=== PATIENT | female | born 1975 | race Caucasian/White ===

== ENCOUNTER 2016-11-17 18:27 | Emergency (ER) | payer MEDICAID ==
[~2016-11-17] VITALS: Ht 170.2 cm; Wt 67.7 kg
[~2016-11-17 18:27] MED LIST: ALPR0.25 PO; BUPR75TA5 PO; DIAZ5TAB4 PO; DOCU-30 PO; HYDR-3240 PO; HYDR473S51 PO; LAMO25TA5 PO; LITH300C PO; OMEP-110 PO; ONDA4TAB10 PO; ONDA4TAB7 PO; OXYC-223 PO; OXYC-302 PO; OXYC10TA32 PO; POLY17PO5 PO; PROM25SU34 RC; QUET25TA5 PO; SENN1TAB7 PO; TRAM50TA2 PO
[2016-11-17 19:04] LABS: ASPARTATE AMINO TRANSFERASE 21 U/L (15-37); BLOOD UREA NITROGEN 9 mg/dL (7-18)
[2016-11-17] MEDS ORDERED: SODIUM CHLORIDE 0.9% 1,000 ML IV ONE (19:38)
[2016-11-17] MEDS ORDERED: DIPHENHYDRAMINE 50 MG/ML, 1ML ONE (19:45)
[2016-11-17] MEDS ORDERED: METOCLOPRAMIDE 5 MG/ML, 2ML ONE (19:48)
[2016-11-17] MEDS ORDERED: PROMETHAZINE 25 MG/ML, 1ML IM ONE (20:00)
[2016-11-17] MEDS ORDERED: SODIUM CHLORIDE FLUSH 10ML SYR IVF ONE (20:00)
[2016-11-17] MEDS ORDERED: SUMATRIPTAN 6MG/0.5ML SQ ONE ×2 (20:00)
[2016-11-17] MEDS ORDERED: DIPHENHYDRAMINE 50 MG/ML, 1ML IVPush ONE (20:00)
[2016-11-17] MEDS ORDERED: ONDANSETRON 2MG/ML, 2ML ONE (20:54)
[2016-11-17] MEDS ORDERED: OMNIPAQUE 350 MG/ML, 100ML BOTTLE ONE (20:56)
[2016-11-17] MEDS ORDERED: METOCLOPRAMIDE 5 MG/ML, 2ML IVPush ONE (21:00)
[2016-11-17] MEDS ORDERED: ONDANSETRON 2MG/ML, 2ML IVPush ONE (21:00)
[2016-11-17] MEDS ORDERED: KETOROLAC 30 MG/1 ML ONE (21:50)
[2016-11-17] MEDS ORDERED: KETOROLAC 30 MG/1 ML IVPush ONE (22:00)
[2016-11-17 22:42] VITALS: BP 111/48
== END 2016-11-17 22:44 | disposition home or self-care (01) ==
LOC: ED 22:37
DX: N83.201 Unspecified ovarian cyst, right side (principal); G43.809 Other migraine, not intractable, without status migrainosus
CPT/HCPCS: 36415; 74177; 80053; 81001; 83690; 85025; 96361; 96372; 96374; 96375; 99285; J1200; J1885; J2405; J2765; J3030; J7030; Q9967

== ENCOUNTER 2017-04-27 23:30 | Inpatient (IN) | payer MEDICAID ==
[~2017-04-27] VITALS: Ht 170.2 cm; Wt 69.0 kg
[~2017-04-27 23:30] MED LIST changes: +DOCU-131 PO; -DOCU-30 PO; -OXYC-223 PO; +OXYC-306 PO; -OXYC10TA32 PO; +OXYC10TA47 PO
[2017-04-28] MEDS ORDERED: PANTOPRAZOLE 40 MG IV ONE (00:14)
[2017-04-28] MEDS ORDERED: DIPHENHYDRAMINE 50 MG/ML, 1ML ONE (00:15)
[2017-04-28] MEDS ORDERED: METOCLOPRAMIDE 5 MG/ML, 2ML ONE (00:15)
[2017-04-28 00:22] LABS: HEMATOCRIT 46.9 % (34.6-47.8); HEMOGLOBIN 15.4 g/dL (11.7-16.4)
[2017-04-28] MEDS ORDERED: METOCLOPRAMIDE 5 MG/ML, 2ML IVPush ONE (00:30)
[2017-04-28] MEDS ORDERED: PANTOPRAZOLE 40 MG IV IVP ONE (00:30)
[2017-04-28] MEDS ORDERED: SODIUM CHLORIDE 0.9% 1,000ML IVBOLUS ONE (00:30)
[2017-04-28] MEDS ORDERED: DIPHENHYDRAMINE 50 MG/ML, 1ML IVPush ONE (00:30)
[2017-04-28 00:32] LABS: ASPARTATE AMINO TRANSFERASE 31 U/L (15-37); BLOOD UREA NITROGEN 10 mg/dL (7-18)
[2017-04-28] MEDS ORDERED: LITH600C PO (00:35)
[2017-04-28] MEDS ORDERED: TOPI100T24 PO (00:35)
[2017-04-28] MEDS ORDERED: LAMO100T5 PO (00:35)
[2017-04-28] MEDS ORDERED: ALPR1TAB2 PO (00:35)
[2017-04-28] MEDS ORDERED: QUET100T4 PO (00:35)
[2017-04-28] MEDS ORDERED: ONDANSETRON 2MG/ML, 2ML ONE ×2 (01:11→01:45)
[2017-04-28] MEDS ORDERED: ONDANSETRON 2MG/ML, 2ML IVPush ONE (01:30)
[2017-04-28] MEDS ORDERED: hydrALAzine 20 MG/ML, 1ML IVPush PRN (01:30)
[2017-04-28] MEDS ORDERED: MORPHINE SULFATE 4 MG/ML, 1ML ONE (01:45)
[2017-04-28] MEDS: morphine SULFATE 10 MG/ML, 1ML IVPush PRN ×5 (01:49→17:51)
[2017-04-28] MEDS: ONDANSETRON 2MG/ML, 2ML IVPush PRN ×3 (01:49→17:51)
[2017-04-28 02:31] VITALS: BP 117/79
[2017-04-28] MEDS: LACTATED RINGERS 1,000 ML IV SCH ×3 (03:38→18:42)
[2017-04-28] MEDS: PROMETHAZINE 25 MG/ML, 1ML IM PRN (04:06)
[2017-04-28 05:46] LABS: HEMATOCRIT 41.7 % (34.6-47.8); HEMOGLOBIN 14.1 g/dL (11.7-16.4); WHITE BLOOD COUNT 11.6 x10^3/uL (3.4-10)
[2017-04-28] MEDS: HEPARIN 5,000 UNITS/ML, 1ML SQ SCH ×3 (05:55→20:33)
[2017-04-28 06:25] LABS: ASPARTATE AMINO TRANSFERASE 26 U/L (15-37); BLOOD UREA NITROGEN 9 mg/dL (7-18)
[2017-04-28 06:59] VITALS: BP 120/74
[2017-04-28] MEDS ORDERED: LITHIUM CARBONATE 300 MG TABLET.ER PO SCH (09:00)
[2017-04-28] MEDS ORDERED: QUETIAPINE 100MG TABLET PO SCH (09:00)
[2017-04-28] MEDS ORDERED: LAMOTRIGINE 100 MG TABLET PO SCH (09:00)
[2017-04-28] MEDS ORDERED: TOPIRAMATE 100 MG TABLET PO SCH (09:00)
[2017-04-28] MEDS: LORazepam 2 MG/ML, 1ML IVPush PRN ×3 (11:35→20:33)
[2017-04-28 14:07] VITALS: BP 118/76
[2017-04-28 18:37] VITALS: BP 112/72
[2017-04-28] MEDS: LAMOTRIGINE 100 MG TABLET PO SCH (20:32)
[2017-04-28] MEDS: TOPIRAMATE 100 MG TABLET PO SCH (20:32)
[2017-04-28] MEDS: QUETIAPINE 100MG TABLET PO SCH (20:32)
[2017-04-28] MEDS: LITHIUM CARBONATE 300 MG TABLET.ER PO SCH (20:33)
[2017-04-29 00:57] VITALS: BP 109/68
[2017-04-29] MEDS: LORazepam 2 MG/ML, 1ML IVPush PRN ×5 (01:06→22:53)
[2017-04-29] MEDS: LACTATED RINGERS 1,000 ML IV SCH ×4 (01:06→17:51)
[2017-04-29] MEDS: HEPARIN 5,000 UNITS/ML, 1ML SQ SCH ×3 (04:42→20:58)
[2017-04-29 05:38] LABS: HEMATOCRIT 36.5 % (34.6-47.8); HEMOGLOBIN 12.1 g/dL (11.7-16.4); WHITE BLOOD COUNT 8.6 x10^3/uL (3.4-10)
[2017-04-29 06:04] LABS: ASPARTATE AMINO TRANSFERASE 18 U/L (15-37); BLOOD UREA NITROGEN 6 mg/dL (7-18)
[2017-04-29 06:49] VITALS: BP 104/65
[2017-04-29] MEDS: PANTOPRAZOLE 40 MG IV IVP SCH (08:06)
[2017-04-29] MEDS ORDERED: FOLIC ACID IV SCH (09:00)
[2017-04-29] MEDS ORDERED: THIAMINE IV SCH (09:00)
[2017-04-29] MEDS ORDERED: MAG SULFATE IV SCH (09:00)
[2017-04-29] MEDS ORDERED: POTASSIUM CHLORIDE IV SCH (09:00)
[2017-04-29] MEDS ORDERED: [UNRECOGNIZED DRUG - OTHER] IV SCH (09:00)
[2017-04-29 13:01] VITALS: BP 107/71
[2017-04-29] MEDS ORDERED: AMINO ACIDS 10% IV SCH (17:00)
[2017-04-29] MEDS ORDERED: TPN PER PHARMACY MC SCH (17:00)
[2017-04-29] MEDS ORDERED: [UNRECOGNIZED DRUG - OTHER] IV SCH (17:00)
[2017-04-29] MEDS ORDERED: FAT EMULSIONS IV SCH (17:00)
[2017-04-29] MEDS ORDERED: DEXTROSE 70% IV SCH (17:00)
[2017-04-29 19:43] VITALS: BP 109/72
[2017-04-29] MEDS: morphine SULFATE 10 MG/ML, 1ML IVPush PRN (20:58)
[2017-04-29] MEDS: TOPIRAMATE 100 MG TABLET PO SCH (20:59)
[2017-04-29] MEDS: LITHIUM CARBONATE 300 MG TABLET.ER PO SCH (20:59)
[2017-04-29] MEDS: QUETIAPINE 100MG TABLET PO SCH (20:59)
[2017-04-29] MEDS: LAMOTRIGINE 100 MG TABLET PO SCH (20:59)
[2017-04-30] MEDS: morphine SULFATE 10 MG/ML, 1ML IVPush PRN ×2 (01:33→09:03)
[2017-04-30 02:26] VITALS: BP 95/60
[2017-04-30] MEDS: LACTATED RINGERS 1,000 ML IV SCH ×3 (02:38→16:44)
[2017-04-30] MEDS: INSULIN ASPART 100 UNITS/ML, PEN SQ-INSULIN SCH ×3 (05:11→21:42)
[2017-04-30] MEDS: HEPARIN 5,000 UNITS/ML, 1ML SQ SCH ×3 (05:12→20:48)
[2017-04-30 05:46] LABS: ASPARTATE AMINO TRANSFERASE 15 U/L (15-37); BLOOD UREA NITROGEN 6 mg/dL (7-18)
[2017-04-30 06:46] VITALS: BP 104/68
[2017-04-30] MEDS: PANTOPRAZOLE 40 MG IV IVP SCH (08:57)
[2017-04-30] MEDS: LORazepam 2 MG/ML, 1ML IVPush PRN ×2 (11:21→17:21)
[2017-04-30 12:47] VITALS: BP 97/63
[2017-04-30] MEDS ORDERED: FAT EMULSIONS IV SCH (17:00)
[2017-04-30] MEDS ORDERED: AMINO ACIDS 10% IV SCH (17:00)
[2017-04-30] MEDS ORDERED: DEXTROSE 10% 500 ML IV PRN (17:00)
[2017-04-30] MEDS ORDERED: DEXTROSE 50%, 50ML SYRINGE IVPush PRN (17:00)
[2017-04-30] MEDS ORDERED: [UNRECOGNIZED DRUG - OTHER] IV SCH (17:00)
[2017-04-30] MEDS ORDERED: DEXTROSE 70% IV SCH (17:00)
[2017-04-30 19:13] VITALS: BP 103/64
[2017-04-30] MEDS: QUETIAPINE 100MG TABLET PO SCH (20:48)
[2017-04-30] MEDS: TOPIRAMATE 100 MG TABLET PO SCH (20:48)
[2017-04-30] MEDS: LAMOTRIGINE 100 MG TABLET PO SCH (20:48)
[2017-04-30] MEDS: LITHIUM CARBONATE 300 MG TABLET.ER PO SCH (20:49)
[2017-04-30] MEDS: PROMETHAZINE 25 MG/ML, 1ML IM PRN (21:42)
[2017-05-01] MEDS: morphine SULFATE 10 MG/ML, 1ML IVPush PRN ×4 (01:29→21:19)
[2017-05-01 02:53] VITALS: BP 104/70
[2017-05-01] MEDS: INSULIN ASPART 100 UNITS/ML, PEN SQ-INSULIN SCH ×3 (05:02→21:23)
[2017-05-01] MEDS: HEPARIN 5,000 UNITS/ML, 1ML SQ SCH ×3 (05:03→21:05)
[2017-05-01 05:34] LABS: BLOOD UREA NITROGEN 9 mg/dL (7-18)
[2017-05-01 08:15] VITALS: BP 106/58
[2017-05-01] MEDS: CHOLECALCIFEROL 1,000 UNIT TABLET PO SCH (08:54)
[2017-05-01] MEDS: LORazepam 2 MG/ML, 1ML IVPush PRN (08:54)
[2017-05-01] MEDS: LACTATED RINGERS 1,000 ML IV SCH ×2 (08:54→22:52)
[2017-05-01] MEDS: PANTOPRAZOLE 40 MG IV IVP SCH (08:54)
[2017-05-01 15:05] VITALS: BP 103/51
[2017-05-01] MEDS ORDERED: FAT EMULSIONS IV SCH (17:00)
[2017-05-01] MEDS ORDERED: DEXTROSE 70% IV SCH (17:00)
[2017-05-01] MEDS ORDERED: [UNRECOGNIZED DRUG - OTHER] IV SCH (17:00)
[2017-05-01] MEDS ORDERED: AMINO ACIDS 10% IV SCH (17:00)
[2017-05-01] MEDS: FILTER 1.2 MICRON IV PRN (17:15)
[2017-05-01] MEDS ORDERED: INSULIN REGULAR LOW DOSE QDAY SQ-INSULIN SCH (21:00)
[2017-05-01] MEDS: TOPIRAMATE 100 MG TABLET PO SCH (21:05)
[2017-05-01] MEDS: QUETIAPINE 100MG TABLET PO SCH (21:05)
[2017-05-01] MEDS: LITHIUM CARBONATE 300 MG TABLET.ER PO SCH (21:06)
[2017-05-01] MEDS: LAMOTRIGINE 100 MG TABLET PO SCH (21:06)
[2017-05-01] MEDS: ONDANSETRON 2MG/ML, 2ML IVPush PRN (21:19)
[2017-05-01 21:50] VITALS: BP 98/63
[2017-05-02] MEDS: morphine SULFATE 10 MG/ML, 1ML IVPush PRN ×4 (00:49→21:53)
[2017-05-02 02:26] VITALS: BP 85/52
[2017-05-02] MEDS: HEPARIN 5,000 UNITS/ML, 1ML SQ SCH ×3 (04:55→21:39)
[2017-05-02] MEDS: LACTATED RINGERS 1,000 ML IV SCH (04:55)
[2017-05-02] MEDS: INSULIN ASPART 100 UNITS/ML, PEN SQ-INSULIN SCH ×3 (05:08→22:00)
[2017-05-02 05:24] LABS: HEMATOCRIT 36.1 % (34.6-47.8); HEMOGLOBIN 12.1 g/dL (11.7-16.4); WHITE BLOOD COUNT 5.8 x10^3/uL (3.4-10)
[2017-05-02 05:29] LABS: BLOOD UREA NITROGEN 12 mg/dL (7-18)
[2017-05-02 07:03] VITALS: BP 80/49
[2017-05-02 07:28] VITALS: BP 90/56
[2017-05-02] MEDS ORDERED: SODIUM CHLORIDE 0.9%, 500ML IVBOLUS ONE (07:30)
[2017-05-02] MEDS: ONDANSETRON 2MG/ML, 2ML IVPush PRN ×2 (07:34→21:50)
[2017-05-02] MEDS: PANTOPRAZOLE 40 MG IV IVP SCH (09:20)
[2017-05-02] MEDS: CHOLECALCIFEROL 1,000 UNIT TABLET PO SCH (09:21)
[2017-05-02 09:24] VITALS: BP 98/57
[2017-05-02] MEDS: METOCLOPRAMIDE 5 MG/ML, 2ML IVPush SCH ×2 (12:00→17:59)
[2017-05-02 12:45] VITALS: BP 92/57
[2017-05-02] MEDS: LORazepam 2 MG/ML, 1ML IVPush PRN (13:06)
[2017-05-02] MEDS ORDERED: FAT EMULSIONS IV SCH (17:00)
[2017-05-02] MEDS ORDERED: AMINO ACIDS 10% IV SCH (17:00)
[2017-05-02] MEDS ORDERED: DEXTROSE 70% IV SCH (17:00)
[2017-05-02] MEDS ORDERED: [UNRECOGNIZED DRUG - OTHER] IV SCH (17:00)
[2017-05-02] MEDS: FILTER 1.2 MICRON IV PRN (17:32)
[2017-05-02 20:02] VITALS: BP 91/46
[2017-05-02] MEDS: TOPIRAMATE 100 MG TABLET PO SCH (21:37)
[2017-05-02] MEDS: LITHIUM CARBONATE 300 MG TABLET.ER PO SCH (21:38)
[2017-05-02] MEDS: LAMOTRIGINE 100 MG TABLET PO SCH (21:38)
[2017-05-02] MEDS: QUETIAPINE 100MG TABLET PO SCH (21:38)
[2017-05-03] MEDS: METOCLOPRAMIDE 5 MG/ML, 2ML IVPush SCH ×5 (00:40→23:45)
[2017-05-03] MEDS: LACTATED RINGERS 1,000 ML IV SCH ×2 (00:41→18:21)
[2017-05-03] MEDS: INSULIN ASPART 100 UNITS/ML, PEN SQ-INSULIN SCH ×3 (04:57→20:37)
[2017-05-03] MEDS: HEPARIN 5,000 UNITS/ML, 1ML SQ SCH ×3 (04:58→20:30)
[2017-05-03 05:04] VITALS: BP 85/51
[2017-05-03 05:44] LABS: HEMATOCRIT 35.4 % (34.6-47.8); HEMOGLOBIN 11.7 g/dL (11.7-16.4); WHITE BLOOD COUNT 5.6 x10^3/uL (3.4-10)
[2017-05-03 05:48] LABS: BLOOD UREA NITROGEN 14 mg/dL (7-18)
[2017-05-03 07:10] VITALS: BP 93/57
[2017-05-03] MEDS: CHOLECALCIFEROL 1,000 UNIT TABLET PO SCH (09:58)
[2017-05-03] MEDS: PANTOPRAZOLE 40 MG IV IVP SCH (09:59)
[2017-05-03] MEDS: morphine SULFATE 10 MG/ML, 1ML IVPush PRN ×2 (10:04→18:28)
[2017-05-03] MEDS: ONDANSETRON 2MG/ML, 2ML IVPush PRN (13:03)
[2017-05-03 13:30] VITALS: BP 91/57
[2017-05-03] MEDS: HYDROcodone/APAP 5/325 TABLET PO PRN (14:22)
[2017-05-03] MEDS: PROMETHAZINE 25 MG/ML, 1ML IM PRN (16:28)
[2017-05-03] MEDS ORDERED: FAT EMULSIONS IV SCH (17:00)
[2017-05-03] MEDS ORDERED: AMINO ACIDS 10% IV SCH (17:00)
[2017-05-03] MEDS ORDERED: [UNRECOGNIZED DRUG - OTHER] IV SCH (17:00)
[2017-05-03] MEDS ORDERED: DEXTROSE 70% IV SCH (17:00)
[2017-05-03] MEDS: FILTER 1.2 MICRON IV PRN (18:22)
[2017-05-03] MEDS: LORazepam 2 MG/ML, 1ML IVPush PRN (20:23)
[2017-05-03] MEDS: TOPIRAMATE 100 MG TABLET PO SCH (20:28)
[2017-05-03] MEDS: LAMOTRIGINE 100 MG TABLET PO SCH (20:28)
[2017-05-03] MEDS: QUETIAPINE 100MG TABLET PO SCH (20:28)
[2017-05-03] MEDS: LITHIUM CARBONATE 300 MG TABLET.ER PO SCH (20:29)
[2017-05-03 20:33] VITALS: BP 94/56
[2017-05-04 01:20] VITALS: BP 104/63
[2017-05-04] MEDS: LORazepam 2 MG/ML, 1ML IVPush PRN ×4 (03:25→22:17)
[2017-05-04] MEDS: HEPARIN 5,000 UNITS/ML, 1ML SQ SCH ×3 (05:33→21:50)
[2017-05-04] MEDS: INSULIN ASPART 100 UNITS/ML, PEN SQ-INSULIN SCH (05:48)
[2017-05-04 06:33] LABS: BLOOD UREA NITROGEN 13 mg/dL (7-18)
[2017-05-04] MEDS: METOCLOPRAMIDE 5 MG/ML, 2ML IVPush SCH ×3 (06:35→18:02)
[2017-05-04 08:30] VITALS: BP 90/61
[2017-05-04] MEDS: CHOLECALCIFEROL 1,000 UNIT TABLET PO SCH (09:48)
[2017-05-04] MEDS: PANTOPRAZOLE 40 MG IV IVP SCH (09:48)
[2017-05-04] MEDS: LACTATED RINGERS 1,000 ML IV SCH ×2 (12:00→22:17)
[2017-05-04] MEDS: GLYCERIN ADULT SUPP PR PRN (14:08)
[2017-05-04 14:31] VITALS: BP 93/52
[2017-05-04] MEDS: morphine SULFATE 10 MG/ML, 1ML IVPush PRN ×2 (15:33→22:18)
[2017-05-04] MEDS ORDERED: [UNRECOGNIZED DRUG - OTHER] IV SCH (17:00)
[2017-05-04] MEDS ORDERED: FAT EMULSIONS IV SCH (17:00)
[2017-05-04] MEDS ORDERED: DEXTROSE 70% IV SCH (17:00)
[2017-05-04] MEDS ORDERED: AMINO ACIDS 10% IV SCH (17:00)
[2017-05-04] MEDS: FILTER 1.2 MICRON IV PRN (18:02)
[2017-05-04 18:35] VITALS: BP 94/65
[2017-05-04] MEDS: QUETIAPINE 100MG TABLET PO SCH (21:45)
[2017-05-04] MEDS: LAMOTRIGINE 100 MG TABLET PO SCH (21:45)
[2017-05-04] MEDS: LITHIUM CARBONATE 300 MG TABLET.ER PO SCH (21:45)
[2017-05-04] MEDS: TOPIRAMATE 100 MG TABLET PO SCH (21:46)
[2017-05-04] MEDS: ONDANSETRON 2MG/ML, 2ML IVPush PRN (22:18)
[2017-05-05] MEDS: METOCLOPRAMIDE 5 MG/ML, 2ML IVPush SCH ×4 (00:32→17:55)
[2017-05-05 02:30] VITALS: BP 88/43
[2017-05-05] MEDS: morphine SULFATE 10 MG/ML, 1ML IVPush PRN ×5 (03:14→22:21)
[2017-05-05] MEDS: LORazepam 2 MG/ML, 1ML IVPush PRN ×2 (03:18→22:22)
[2017-05-05] MEDS: ONDANSETRON 2MG/ML, 2ML IVPush PRN ×3 (05:52→22:21)
[2017-05-05] MEDS: HEPARIN 5,000 UNITS/ML, 1ML SQ SCH ×3 (05:52→21:37)
[2017-05-05 06:41] LABS: BLOOD UREA NITROGEN 12 mg/dL (7-18)
[2017-05-05] MEDS ORDERED: SODIUM CHLORIDE 0.9%, 500ML IVBOLUS ONE (07:00)
[2017-05-05 08:45] VITALS: BP 81/49
[2017-05-05] MEDS: PANTOPRAZOLE 40 MG IV IVP SCH (08:54)
[2017-05-05] MEDS: CHOLECALCIFEROL 1,000 UNIT TABLET PO SCH (08:57)
[2017-05-05] MEDS: INSULIN ASPART 100 UNITS/ML, PEN SQ-INSULIN SCH (09:00)
[2017-05-05 15:59] VITALS: BP 90/59
[2017-05-05] MEDS ORDERED: AMINO ACIDS 10% IV SCH (17:00)
[2017-05-05] MEDS ORDERED: DEXTROSE 70% IV SCH (17:00)
[2017-05-05] MEDS ORDERED: FILTER 1.2 MICRON IV PRN (17:00)
[2017-05-05] MEDS ORDERED: FAT EMULSIONS IV SCH (17:00)
[2017-05-05] MEDS ORDERED: [UNRECOGNIZED DRUG - OTHER] IV SCH (17:00)
[2017-05-05] MEDS: HYDROcodone/APAP 5/325 TABLET PO PRN (18:40)
[2017-05-05 19:23] VITALS: BP 86/51
[2017-05-05] MEDS: QUETIAPINE 100MG TABLET PO SCH (21:36)
[2017-05-05] MEDS: TOPIRAMATE 100 MG TABLET PO SCH (21:36)
[2017-05-05] MEDS: LAMOTRIGINE 100 MG TABLET PO SCH (21:36)
[2017-05-05] MEDS: LITHIUM CARBONATE 300 MG TABLET.ER PO SCH (21:36)
[2017-05-06] MEDS: METOCLOPRAMIDE 5 MG/ML, 2ML IVPush SCH ×4 (01:01→18:04)
[2017-05-06] MEDS: LACTATED RINGERS 1,000 ML IV SCH (01:05)
[2017-05-06 02:00] VITALS: BP 89/59
[2017-05-06] MEDS: HEPARIN 5,000 UNITS/ML, 1ML SQ SCH ×3 (06:12→21:23)
[2017-05-06 06:39] VITALS: BP 95/48
[2017-05-06] MEDS: INSULIN ASPART 100 UNITS/ML, PEN SQ-INSULIN SCH (09:00)
[2017-05-06] MEDS: PANTOPRAZOLE 40 MG IV IVP SCH (10:16)
[2017-05-06] MEDS: CHOLECALCIFEROL 1,000 UNIT TABLET PO SCH (10:17)
[2017-05-06] MEDS: morphine SULFATE 10 MG/ML, 1ML IVPush PRN ×4 (10:17→21:24)
[2017-05-06] MEDS: LORazepam 2 MG/ML, 1ML IVPush PRN ×3 (10:17→21:23)
[2017-05-06] MEDS: ONDANSETRON 2MG/ML, 2ML IVPush PRN ×2 (12:55→21:24)
[2017-05-06] MEDS: PROMETHAZINE 25 MG/ML, 1ML IM PRN ×2 (12:56→18:21)
[2017-05-06 14:00] VITALS: BP 84/49
[2017-05-06] MEDS ORDERED: [UNRECOGNIZED DRUG - OTHER] IV SCH ×5 (17:00→18:00)
[2017-05-06] MEDS ORDERED: AMINO ACIDS 10% IV SCH ×5 (17:00→18:00)
[2017-05-06] MEDS ORDERED: DEXTROSE 70% IV SCH ×5 (17:00→18:00)
[2017-05-06] MEDS ORDERED: FAT EMULSIONS IV SCH ×5 (17:00→18:00)
[2017-05-06] MEDS: FILTER 1.2 MICRON IV PRN (17:50)
[2017-05-06 18:47] VITALS: BP 98/62
[2017-05-06] MEDS: TOPIRAMATE 100 MG TABLET PO SCH (21:21)
[2017-05-06] MEDS: LAMOTRIGINE 100 MG TABLET PO SCH (21:21)
[2017-05-06] MEDS: QUETIAPINE 100MG TABLET PO SCH (21:21)
[2017-05-06] MEDS: LITHIUM CARBONATE 300 MG TABLET.ER PO SCH (21:22)
[2017-05-07] MEDS: morphine SULFATE 10 MG/ML, 1ML IVPush PRN ×5 (00:17→20:43)
[2017-05-07] MEDS: METOCLOPRAMIDE 5 MG/ML, 2ML IVPush SCH ×5 (00:21→23:33)
[2017-05-07 01:15] VITALS: BP 107/65
[2017-05-07] MEDS: ONDANSETRON 2MG/ML, 2ML IVPush PRN ×4 (03:58→21:08)
[2017-05-07] MEDS: LORazepam 2 MG/ML, 1ML IVPush PRN ×4 (03:59→20:42)
[2017-05-07] MEDS: HEPARIN 5,000 UNITS/ML, 1ML SQ SCH ×3 (05:45→20:43)
[2017-05-07 06:37] LABS: BLOOD UREA NITROGEN 18 mg/dL (7-18)
[2017-05-07] MEDS: INSULIN ASPART 100 UNITS/ML, PEN SQ-INSULIN SCH (08:12)
[2017-05-07] MEDS: PANTOPRAZOLE 40 MG IV IVP SCH (08:16)
[2017-05-07] MEDS: CHOLECALCIFEROL 1,000 UNIT TABLET PO SCH (08:17)
[2017-05-07 08:24] VITALS: BP 91/45
[2017-05-07 13:26] VITALS: BP 97/51
[2017-05-07] MEDS ORDERED: FAT EMULSIONS IV SCH (17:00)
[2017-05-07] MEDS ORDERED: AMINO ACIDS 10% IV SCH (17:00)
[2017-05-07] MEDS ORDERED: [UNRECOGNIZED DRUG - OTHER] IV SCH (17:00)
[2017-05-07] MEDS ORDERED: DEXTROSE 70% IV SCH (17:00)
[2017-05-07] MEDS: FILTER 1.2 MICRON IV PRN (17:15)
[2017-05-07] MEDS: GLYCERIN ADULT SUPP PR PRN (17:57)
[2017-05-07 19:01] VITALS: BP 101/46
[2017-05-07] MEDS: QUETIAPINE 100MG TABLET PO SCH (20:43)
[2017-05-07] MEDS: LITHIUM CARBONATE 300 MG TABLET.ER PO SCH (20:44)
[2017-05-07] MEDS: TOPIRAMATE 100 MG TABLET PO SCH (20:44)
[2017-05-07] MEDS: LAMOTRIGINE 100 MG TABLET PO SCH (20:44)
[2017-05-08] VITALS (7 sets, daily range): BP systolic 84–113; BP diastolic 44–67
[2017-05-08] MEDS: LORazepam 2 MG/ML, 1ML IVPush PRN ×3 (02:23→20:39)
[2017-05-08] MEDS ORDERED: CATHFLO-ALTEPLASE 2 MG/2 ML CATHFLUSH ONE ×2 (05:00→08:00)
[2017-05-08] MEDS: METOCLOPRAMIDE 5 MG/ML, 2ML IVPush SCH ×3 (05:24→18:13)
[2017-05-08] MEDS: HEPARIN 5,000 UNITS/ML, 1ML SQ SCH ×3 (05:25→20:40)
[2017-05-08 05:58] LABS: BLOOD UREA NITROGEN 18 mg/dL (7-18)
[2017-05-08] MEDS ORDERED: SODIUM CHLORIDE 0.9%, 500ML IVBOLUS ONE (06:00)
[2017-05-08] MEDS: INSULIN ASPART 100 UNITS/ML, PEN SQ-INSULIN SCH (09:00)
[2017-05-08] MEDS: CHOLECALCIFEROL 1,000 UNIT TABLET PO SCH (09:13)
[2017-05-08] MEDS: PANTOPRAZOLE 40 MG IV IVP SCH (09:13)
[2017-05-08] MEDS: morphine SULFATE 10 MG/ML, 1ML IVPush PRN ×3 (12:31→23:25)
[2017-05-08] MEDS: FILTER 1.2 MICRON IV PRN (16:53)
[2017-05-08] MEDS ORDERED: AMINO ACIDS 10% IV SCH (17:00)
[2017-05-08] MEDS ORDERED: DEXTROSE 70% IV SCH (17:00)
[2017-05-08] MEDS ORDERED: FAT EMULSIONS IV SCH (17:00)
[2017-05-08] MEDS ORDERED: [UNRECOGNIZED DRUG - OTHER] IV SCH (17:00)
[2017-05-08] MEDS: GLYCERIN ADULT SUPP PR PRN (20:40)
[2017-05-08] MEDS: ONDANSETRON 2MG/ML, 2ML IVPush PRN (20:40)
[2017-05-08] MEDS: QUETIAPINE 100MG TABLET PO SCH (20:47)
[2017-05-08] MEDS: LITHIUM CARBONATE 300 MG TABLET.ER PO SCH (20:48)
[2017-05-08] MEDS: TOPIRAMATE 100 MG TABLET PO SCH (20:49)
[2017-05-08] MEDS: LAMOTRIGINE 100 MG TABLET PO SCH (20:50)
[2017-05-09] MEDS: METOCLOPRAMIDE 5 MG/ML, 2ML IVPush SCH ×4 (01:31→21:24)
[2017-05-09] MEDS: morphine SULFATE 10 MG/ML, 1ML IVPush PRN ×5 (02:57→21:24)
[2017-05-09 03:00] VITALS: BP 90/51
[2017-05-09] MEDS: HEPARIN 5,000 UNITS/ML, 1ML SQ SCH ×3 (04:35→21:23)
[2017-05-09 04:49] LABS: ASPARTATE AMINO TRANSFERASE 18 U/L (15-37); BLOOD UREA NITROGEN 19 mg/dL (7-18)
[2017-05-09] MEDS: LORazepam 2 MG/ML, 1ML IVPush PRN (04:51)
[2017-05-09] MEDS: LACTATED RINGERS 1,000 ML IV SCH (05:50)
[2017-05-09 07:05] VITALS: BP 92/50
[2017-05-09] MEDS: PANTOPRAZOLE 40 MG IV IVP SCH (08:20)
[2017-05-09] MEDS: CHOLECALCIFEROL 1,000 UNIT TABLET PO SCH (08:21)
[2017-05-09] MEDS: INSULIN ASPART 100 UNITS/ML, PEN SQ-INSULIN SCH (09:00)
[2017-05-09] MEDS ORDERED: FILTER 1.2 MICRON IV PRN (11:00)
[2017-05-09 11:27] VITALS: BP 95/53
[2017-05-09 16:04] VITALS: BP 91/52
[2017-05-09] MEDS ORDERED: AMINO ACIDS 10% IV SCH (17:00)
[2017-05-09] MEDS ORDERED: DEXTROSE 70% IV SCH (17:00)
[2017-05-09] MEDS ORDERED: [UNRECOGNIZED DRUG - OTHER] IV SCH (17:00)
[2017-05-09] MEDS ORDERED: FAT EMULSIONS IV SCH (17:00)
[2017-05-09 20:00] VITALS: BP 98/53
[2017-05-09] MEDS: LITHIUM CARBONATE 300 MG TABLET.ER PO SCH (21:23)
[2017-05-09] MEDS: QUETIAPINE 100MG TABLET PO SCH (21:23)
[2017-05-09] MEDS: LAMOTRIGINE 100 MG TABLET PO SCH (21:24)
[2017-05-09] MEDS: TOPIRAMATE 100 MG TABLET PO SCH (21:24)
[2017-05-09 23:59] VITALS: BP 97/47
[2017-05-10] MEDS: ONDANSETRON 2MG/ML, 2ML IVPush PRN ×2 (01:27→08:48)
[2017-05-10] MEDS: LORazepam 2 MG/ML, 1ML IVPush PRN (01:27)
[2017-05-10] MEDS: METOCLOPRAMIDE 5 MG/ML, 2ML IVPush SCH ×2 (04:21→09:30)
[2017-05-10 04:24] VITALS: BP 92/53
[2017-05-10] MEDS: LACTATED RINGERS 1,000 ML IV SCH (05:52)
[2017-05-10] MEDS: HEPARIN 5,000 UNITS/ML, 1ML SQ SCH ×2 (06:01→12:43)
[2017-05-10] MEDS: INSULIN ASPART 100 UNITS/ML, PEN SQ-INSULIN SCH (08:39)
[2017-05-10] MEDS: PANTOPRAZOLE 40 MG IV IVP SCH (08:46)
[2017-05-10] MEDS: CHOLECALCIFEROL 1,000 UNIT TABLET PO SCH (08:47)
[2017-05-10 08:55] VITALS: BP 83/41
[2017-05-10 10:15] VITALS: BP 96/60
[2017-05-10] MEDS ORDERED: CHOL10003 PO (11:21)
[2017-05-10] MEDS ORDERED: HYDR-3240 PO (11:21)
[2017-05-10] MEDS ORDERED: Tpn Per Pharmacy MC (11:21)
[2017-05-10] MEDS ORDERED: METO5TAB57 PO (11:21)
[2017-05-10] MEDS ORDERED: ONDA4TAB7 PO (11:21)
[2017-05-10] MEDS ORDERED: DOCU-131 PO (11:28)
[2017-05-10] MEDS: HYDROcodone/APAP 5/325 TABLET PO PRN (12:34)
[2017-05-10] MEDS: PROMETHAZINE 25 MG/ML, 1ML IM PRN (12:49)
[2017-05-10 15:05] VITALS: BP 108/73
== END 2017-05-10 16:17 | disposition home or self-care (01) | DRG 438 ==
LOC: ED 23:41 → EDIP 04-28 01:21 → SUATTDRO 04-28 01:23 → 4NOR 04-28 01:44 → DCLOUNGE 05-10 15:56
PROVIDERS: ADMIT Hospitalist; ATTEND Family Medicine
PROC: 02HV33Z Insertion of Infusion Device into Superior Vena Cava, Percutaneous Approach (ICD-10-PCS; principal; 2017-04-28)
PROC: B5181ZA Fluoroscopy of Superior Vena Cava using Low Osmolar Contrast, Guidance (ICD-10-PCS; 2017-04-28)
PROC: 3E0436Z Introduction of Nutritional Substance into Central Vein, Percutaneous Approach (ICD-10-PCS; 2017-04-28)
DX: K85.90 Acute pancreatitis without necrosis or infection, unspecified (principal); E43 Unspecified severe protein-calorie malnutrition; E87.2 Acidosis; K31.84 Gastroparesis; R62.7 Adult failure to thrive; D75.89 Other specified diseases of blood and blood-forming organs; F31.9 Bipolar disorder, unspecified; E55.9 Vitamin D deficiency, unspecified; F41.1 Generalized anxiety disorder; E86.0 Dehydration; Z87.442 Personal history of urinary calculi; Z90.3 Acquired absence of stomach [part of]; Z98.84 Bariatric surgery status; Z79.899 Other long term (current) drug therapy; Z79.1 Long term (current) use of non-steroidal anti-inflammatories (NSAID); Z88.8 Allergy status to other drugs, medicaments and biological substances; Z68.23 Body mass index [BMI] 23.0-23.9, adult
CPT/HCPCS: 36415; 36569; 74020; 76700; 76937; 77001; 80048; 80053; 81003; 82306; 82533; 82607; 82962; 83605; 83690; 83735; 84100; 84134; 84207; 84425; 84443; 84478; 85025; 87040; 96361; 96374; 96375; J0610; J1644; J2405; J2550; J2997; J3411; J3475; J3480; C1751; C9113; J1200; J2060; J2270; J2765; J3420; J7030; J7040; J7120

== ENCOUNTER 2017-07-17 16:24 | Emergency (ER) | payer MEDICAID ==
[~2017-07-17] VITALS: Ht 170.2 cm; Wt 54.3 kg
[~2017-07-17 16:24] MED LIST changes: +ALPR1TAB2 PO; +CHOL10003 PO; +LAMO100T5 PO; +LITH600C PO; +METO5TAB57 PO; +QUET100T4 PO; +TOPI100T24 PO; +Tpn Per Pharmacy MC
[2017-07-17] MEDS ORDERED: SODIUM CHLORIDE FLUSH 10ML SYR IVF ONE (18:30)
[2017-07-17] MEDS ORDERED: SODIUM CHLORIDE 0.9% 1,000ML IVBOLUS ONE (18:30)
[2017-07-17] MEDS ORDERED: PROCHLORPERAZINE 5 MG/ML, 2ML IVPush ONE (18:30)
[2017-07-17] MEDS ORDERED: HYDROmorphone 2 MG/ML, 1ML ONE ×2 (18:38→21:34)
[2017-07-17] MEDS ORDERED: PROCHLORPERAZINE 5 MG/ML, 2ML ONE (18:38)
[2017-07-17 18:45] LABS: BASOPHILS # (AUTO) 0.02 x10^3/uL (0-0.1); BASOPHILS % (AUTO) 0 % (0-1); EOSINOPHILS # (AUTO) 0.01 x10^3/uL (0-0.4); EOSINOPHILS % (AUTO) 0 % (1-7); LYMPHOCYTES # (AUTO) 1.11 x10^3/uL (1-3.4); LYMPHOCYTES % (AUTO) 24 % (22-44); MD NO; MEAN CORPUSCULAR HGB CONC 33.1 g/dL (32.4-35.8); MEAN CORPUSCULAR VOLUME 84.7 fL (80-100); MEAN PLATELET VOLUME 7.9 fL (7.4-10.4); MONOCYTES # (AUTO) 0.41 x10^3/uL (0.2-0.8); MONOCYTES % (AUTO) 9 % (2-9); NEUTROPHILS # (AUTO) 3.07 x10^3/uL (1.8-6.8); NEUTROPHILS % (AUTO) 66 % (42-75); PLATELET COUNT 386 x10^3/uL (130-400); RED BLOOD COUNT 5.13 x10^6/uL (3.82-5.3); RED CELL DISTRIBUTION WIDTH 14.7 % (9.6-15.2)
[2017-07-17] MEDS: HYDROmorphone 1 MG/ML, 1ML IVPush PRN ×2 (18:47→21:36)
[2017-07-17 18:54] LABS: ALANINE AMINOTRANSFERASE 41 U/L (12-78); ALBUMIN 3.7 g/dL (3.4-5.0); ANION GAP 11 mmol/L (5-15); CALCIUM 9.8 mg/dL (8.5-10.1); CHLORIDE 108 mmol/L (98-107); CREATININE 0.67 mg/dL (0.55-1.02)
[2017-07-17 18:56] LABS: ALKALINE PHOSPHATASE 83 U/L (45-117); BILIRUBIN,TOTAL 0.5 mg/dL (0.2-1.0); TOTAL PROTEIN 7.6 g/dL (6.4-8.2)
[2017-07-17 19:35] LABS: MICROSCOPIC INDICATED
[2017-07-17] MEDS ORDERED: ONDANSETRON 2MG/ML, 2ML ONE (19:41)
[2017-07-17 19:45] LABS: CULTURE INDICATED? NO
[2017-07-17] MEDS ORDERED: ONDANSETRON 2MG/ML, 2ML IVPush ONE (20:00)
[2017-07-17] MEDS ORDERED: METOCLOPRAMIDE 5 MG/ML, 2ML ONE (21:34)
[2017-07-17] MEDS ORDERED: METOCLOPRAMIDE 5 MG/ML, 2ML IVPush ONE (22:00)
[2017-07-17 22:29] VITALS: BP 102/54
[2017-07-18] MEDS ORDERED: OMNIPAQUE 350 MG/ML, 100ML BOTTLE ONE (04:13)
== END 2017-07-17 23:01 | disposition home or self-care (01) ==
LOC: ED 18:53
DX: G43.A1 Cyclical vomiting, in migraine, intractable (principal); R10.84 Generalized abdominal pain; G43.909 Migraine, unspecified, not intractable, without status migrainosus; Z98.84 Bariatric surgery status; Z98.890 Other specified postprocedural states; Z87.19 Personal history of other diseases of the digestive system
CPT/HCPCS: 36415; 74177; 80053; 81001; 83690; 85025; 93005; 96361; 96374; 96375; 96376; 99285; J0780; J1170; J2405; J2765; J7030; Q9967

== ENCOUNTER 2017-09-05 12:07 | Inpatient (IN) | payer MEDICAID ==
[~2017-09-05] VITALS: Ht 170.2 cm; Wt 54.0 kg
[2017-09-05] MEDS ORDERED: SODIUM CHLORIDE 0.9% 1,000ML IVBOLUS ONE (13:00)
[2017-09-05] MEDS ORDERED: SODIUM CHLORIDE FLUSH 10ML SYR IVF ONE (13:00)
[2017-09-05 13:06] LABS: BASOPHILS # (AUTO) 0.03 x10^3/uL (0-0.1); BASOPHILS % (AUTO) 1 % (0-1); EOSINOPHILS % (AUTO) 0 % (1-7); LYMPHOCYTES # (AUTO) 0.85 x10^3/uL (1-3.4); LYMPHOCYTES % (AUTO) 18 % (22-44); MD NO; MEAN CORPUSCULAR HEMOGLOBIN 27.3 pg (27.0-34.8); MEAN CORPUSCULAR HGB CONC 32.9 g/dL (32.4-35.8); MEAN CORPUSCULAR VOLUME 83.1 fL (80-100); MEAN PLATELET VOLUME 8.3 fL (7.4-10.4); MONOCYTES # (AUTO) 0.13 x10^3/uL (0.2-0.8); MONOCYTES % (AUTO) 3 % (2-9); NEUTROPHILS # (AUTO) 3.62 x10^3/uL (1.8-6.8); NEUTROPHILS % (AUTO) 78 % (42-75); PLATELET COUNT 338 x10^3/uL (130-400); RED BLOOD COUNT 5.25 x10^6/uL (3.82-5.3); RED CELL DISTRIBUTION WIDTH 14.2 % (9.6-15.2)
[2017-09-05 13:11] LABS: ALANINE AMINOTRANSFERASE 34 U/L (12-78); ANION GAP 13 mmol/L (5-15); CALCIUM 9.5 mg/dL (8.5-10.1); CHLORIDE 108 mmol/L (98-107)
[2017-09-05 13:16] LABS: ALKALINE PHOSPHATASE 88 U/L (45-117); BILIRUBIN,TOTAL 0.6 mg/dL (0.2-1.0); CREATININE 0.98 mg/dL (0.55-1.02)
[2017-09-05 15:29] LABS: MICROSCOPIC INDICATED
[2017-09-05 15:37] LABS: CULTURE INDICATED? NO
[2017-09-05] MEDS ORDERED: HYDROmorphone 2 MG/ML, 1ML ONE ×3 (15:48→21:06)
[2017-09-05] MEDS ORDERED: ONDANSETRON 2MG/ML, 2ML ONE ×2 (15:48→21:06)
[2017-09-05] MEDS ORDERED: HYDROmorphone 2 MG/ML, 1ML IV ONE (16:00)
[2017-09-05] MEDS ORDERED: ONDANSETRON 2MG/ML, 2ML IVPush ONE (16:00)
[2017-09-05] MEDS ORDERED: OMNIPAQUE 350 MG/ML, 100ML BOTTLE ONE (17:21)
[2017-09-05] MEDS ORDERED: METOCLOPRAMIDE 5 MG/ML, 2ML IVPush ONE (17:30)
[2017-09-05] MEDS ORDERED: METOCLOPRAMIDE 5 MG/ML, 2ML ONE (17:40)
[2017-09-05] MEDS ORDERED: ONDANSETRON 2MG/ML, 2ML IVPush PRN (21:00)
[2017-09-05] MEDS: HYDROmorphone 1 MG/ML, 1ML IV PRN (21:11)
[2017-09-06 01:00] VITALS: BP 101/65
[2017-09-06] MEDS: D5%-0.45% NACL 1,000 ML IV SCH ×2 (01:09→21:30)
[2017-09-06] MEDS: POTASSIUM CHLORIDE 20 MEQ, MAGNESIUM SULFATE 2 GM, MVI ADULT 10 ML, FOLIC ACID 1 MG in ... IV SCH ×2 (01:09→11:24)
[2017-09-06] MEDS ORDERED: PROMETHAZINE 25 MG/ML, 1ML IM PRN (01:30)
[2017-09-06] MEDS ORDERED: ONDANSETRON ODT 4 MG PO PRN (01:30)
[2017-09-06] MEDS ORDERED: morphine SULFATE 10 MG/ML, 1ML IVPush PRN (01:30)
[2017-09-06] MEDS ORDERED: ACETAMINOPHEN 325 MG TABLET PO PRN (01:30)
[2017-09-06] MEDS ORDERED: LABETALOL 5MG/ML, 20ML IVPush PRN (01:30)
[2017-09-06] MEDS ORDERED: QUETIAPINE 100MG TABLET ONE (01:55)
[2017-09-06] MEDS ORDERED: HYDROmorphone 2 MG/ML, 1ML ONE ×4 (01:56→21:10)
[2017-09-06] MEDS: HYDROmorphone 1 MG/ML, 1ML IV PRN ×5 (02:01→21:11)
[2017-09-06] MEDS: QUETIAPINE 100MG TABLET PO SCH ×2 (02:05→21:08)
[2017-09-06] MEDS: ONDANSETRON 2MG/ML, 2ML IVPush PRN ×3 (04:36→16:20)
[2017-09-06 06:57] VITALS: BP 118/74
[2017-09-06] MEDS: FAMOTIDINE 20 MG/2 ML IVPush SCH ×2 (10:06→21:08)
[2017-09-06] MEDS: THIAMINE 100MG TABLET PO SCH (12:20)
[2017-09-06 14:13] VITALS: BP 95/62
[2017-09-06] MEDS: METOCLOPRAMIDE 5 MG/ML, 2ML IVPush PRN ×2 (14:35→21:11)
[2017-09-06 20:20] VITALS: BP 101/63
[2017-09-07] MEDS: HYDROmorphone 1 MG/ML, 1ML IV PRN ×3 (00:54→14:06)
[2017-09-07] MEDS: POTASSIUM CHLORIDE 20 MEQ, MAGNESIUM SULFATE 2 GM, MVI ADULT 10 ML, FOLIC ACID 1 MG in ... IV SCH (00:54)
[2017-09-07] MEDS: ONDANSETRON 2MG/ML, 2ML IVPush PRN ×3 (00:54→20:30)
[2017-09-07 01:01] VITALS: BP 89/52
[2017-09-07 03:17] VITALS: BP 165/85
[2017-09-07] MEDS ORDERED: HYDROmorphone 2 MG/ML, 1ML ONE ×2 (05:06→14:02)
[2017-09-07] MEDS: METOCLOPRAMIDE 5 MG/ML, 2ML IVPush PRN ×2 (05:10→20:30)
[2017-09-07 05:14] VITALS: BP 94/60
[2017-09-07 05:39] LABS: MEAN CORPUSCULAR HEMOGLOBIN 27.1 pg (27.0-34.8); MEAN CORPUSCULAR HGB CONC 32.7 g/dL (32.4-35.8); MEAN CORPUSCULAR VOLUME 82.9 fL (80-100); MEAN PLATELET VOLUME 8.2 fL (7.4-10.4); PLATELET COUNT 214 x10^3/uL (130-400); RED CELL DISTRIBUTION WIDTH 14.3 % (9.6-15.2)
[2017-09-07 05:43] LABS: ALBUMIN 2.9 g/dL (3.4-5.0); ANION GAP 5 mmol/L (5-15); CALCIUM 7.8 mg/dL (8.5-10.1); CHLORIDE 111 mmol/L (98-107)
[2017-09-07 05:51] LABS: ALANINE AMINOTRANSFERASE 38 U/L (12-78); ALKALINE PHOSPHATASE 66 U/L (45-117); BILIRUBIN,TOTAL 0.5 mg/dL (0.2-1.0); CREATININE 0.67 mg/dL (0.55-1.02); TOTAL PROTEIN 5.3 g/dL (6.4-8.2)
[2017-09-07 06:07] LABS: HEMOGLOBIN A1C 5.2 % (4.2-6.3)
[2017-09-07 07:13] LABS: HEMOGRAM NOTE RECHECKED; MD YES
[2017-09-07 07:17] LABS: <PLATELET ESTIMATE> ADEQUATE; <PLT MORPHOLOGY> NORMAL PLT MORPH; <RBC MORPHOLOGY> NORMAL; BASOS#(MANUAL) 0.05 x10^3/uL (0-0.1); BASOS% (MANUAL) 1 % (0-1); EOS#(MANUAL) 0.33 x10^3/uL (0.0-0.4); EOS% (MANUAL) 7 % (1-7); LYMPH#(MANUAL) 2.96 x10^3/uL (1-3.4); LYMPHS% (MANUAL) 63 % (22-44); MONOS#(MANUAL) 0.38 x10^3/uL (0.3-2.7); MONOS% (MANUAL) 8 % (2-9); SEG#(MANUAL) 0.99 x10^3/uL (1.8-6.8); SEGS% (MANUAL) 21 % (42-75)
[2017-09-07] MEDS: FAMOTIDINE 20 MG/2 ML IVPush SCH ×2 (08:33→20:18)
[2017-09-07] MEDS: THIAMINE 100MG TABLET PO SCH (08:43)
[2017-09-07 12:50] VITALS: BP 97/60
[2017-09-07 20:00] VITALS: BP 101/60
[2017-09-07] MEDS: QUETIAPINE 100MG TABLET PO SCH (21:41)
[2017-09-08 03:00] VITALS: BP 90/54
[2017-09-08 05:43] LABS: BASOPHILS # (AUTO) 0.04 x10^3/uL (0-0.1); BASOPHILS % (AUTO) 1 % (0-1); EOSINOPHILS # (AUTO) 0.15 x10^3/uL (0-0.4); EOSINOPHILS % (AUTO) 3 % (1-7); LYMPHOCYTES # (AUTO) 2.36 x10^3/uL (1-3.4); LYMPHOCYTES % (AUTO) 48 % (22-44); MD NO; MEAN CORPUSCULAR HEMOGLOBIN 27.3 pg (27.0-34.8); MEAN CORPUSCULAR HGB CONC 32.9 g/dL (32.4-35.8); MEAN CORPUSCULAR VOLUME 82.8 fL (80-100); MEAN PLATELET VOLUME 8.5 fL (7.4-10.4); MONOCYTES # (AUTO) 0.43 x10^3/uL (0.2-0.8); MONOCYTES % (AUTO) 9 % (2-9); NEUTROPHILS # (AUTO) 1.95 x10^3/uL (1.8-6.8); NEUTROPHILS % (AUTO) 40 % (42-75); PLATELET COUNT 209 x10^3/uL (130-400); RED BLOOD COUNT 4.17 x10^6/uL (3.82-5.3); RED CELL DISTRIBUTION WIDTH 13.9 % (9.6-15.2)
[2017-09-08 05:48] LABS: CHLORIDE 111 mmol/L (98-107)
[2017-09-08 06:07] LABS: ANION GAP 8 mmol/L (5-15); CALCIUM 8.5 mg/dL (8.5-10.1); CREATININE 0.62 mg/dL (0.55-1.02)
[2017-09-08 06:52] VITALS: BP 92/58
[2017-09-08] MEDS: FAMOTIDINE 20 MG/2 ML IVPush SCH (08:02)
[2017-09-08] MEDS: THIAMINE 100MG TABLET PO SCH (08:02)
== END 2017-09-08 11:39 | disposition home or self-care (01) | DRG 392 ==
LOC: ED 18:27 → 4NOR 18:58 → DCLOUNGE 09-08 11:30
PROVIDERS: ADMIT Internal Medicine; ATTEND Internal Medicine
DX: R11.2 Nausea with vomiting, unspecified (principal); R56.9 Unspecified convulsions; E86.0 Dehydration; R10.9 Unspecified abdominal pain; F41.1 Generalized anxiety disorder; F31.9 Bipolar disorder, unspecified; G43.909 Migraine, unspecified, not intractable, without status migrainosus; R19.7 Diarrhea, unspecified; Z87.442 Personal history of urinary calculi; Z90.3 Acquired absence of stomach [part of]; Z90.49 Acquired absence of other specified parts of digestive tract; Z90.710 Acquired absence of both cervix and uterus; Z98.84 Bariatric surgery status
CPT/HCPCS: 36415; 74018; 74021; 74177; 80048; 80053; 81001; 83036; 83690; 83735; 84100; 84702; 84703; 85025; 96361; 96374; 96375; J1170; J2405; J2550; J3475; J3480; J7042; Q9967; J2765; J7030; S0028

== ENCOUNTER 2017-10-12 19:07 | Inpatient (IN) | payer MEDICAID ==
[~2017-10-12] VITALS: Ht 170.2 cm; Wt 56.5 kg
[2017-10-12] MEDS ORDERED: ONDANSETRON 2MG/ML, 2ML ONE (19:59)
[2017-10-12] MEDS ORDERED: METOCLOPRAMIDE 5 MG/ML, 2ML IVPush ONE (20:00)
[2017-10-12] MEDS ORDERED: ONDANSETRON 2MG/ML, 2ML IVPush ONE (20:00)
[2017-10-12] MEDS ORDERED: SODIUM CHLORIDE 0.9%, 500ML IVBOLUS ONE (20:00)
[2017-10-12] MEDS ORDERED: MORPHINE SULFATE 4 MG/ML, 1ML IVPush ONE (20:00)
[2017-10-12] MEDS ORDERED: METOCLOPRAMIDE 5 MG/ML, 2ML ONE (20:00)
[2017-10-12] MEDS ORDERED: MORPHINE SULFATE 4 MG/ML, 1ML ONE (20:00)
[2017-10-12] MEDS ORDERED: HYOS0.1268 PO (21:43)
[2017-10-12] MEDS ORDERED: ARIP400S3 IJ (21:44)
[2017-10-12 22:14] VITALS: BP 100/69
[2017-10-12 22:26] LABS: BASOPHILS # (AUTO) 0.02 x10^3/uL (0-0.1); BASOPHILS % (AUTO) 0 % (0-1); EOSINOPHILS % (AUTO) 0 % (1-7); LYMPHOCYTES # (AUTO) 1.08 x10^3/uL (1-3.4); LYMPHOCYTES % (AUTO) 26 % (22-44); MD NO; MEAN CORPUSCULAR HEMOGLOBIN 27.1 pg (27.0-34.8); MEAN CORPUSCULAR VOLUME 81.9 fL (80-100); MEAN PLATELET VOLUME 7.8 fL (7.4-10.4); MONOCYTES # (AUTO) 0.28 x10^3/uL (0.2-0.8); MONOCYTES % (AUTO) 7 % (2-9); NEUTROPHILS # (AUTO) 2.71 x10^3/uL (1.8-6.8); NEUTROPHILS % (AUTO) 66 % (42-75); PLATELET COUNT 335 x10^3/uL (130-400); RED BLOOD COUNT 4.57 x10^6/uL (3.82-5.3); RED CELL DISTRIBUTION WIDTH 15.7 % (9.6-15.2)
[2017-10-12 22:38] LABS: ALBUMIN 3.4 g/dL (3.4-5.0); ANION GAP 10 mmol/L (5-15); CALCIUM 8.4 mg/dL (8.5-10.1); CHLORIDE 111 mmol/L (98-107); CREATININE 0.67 mg/dL (0.55-1.02)
[2017-10-12] MEDS ORDERED: KETOROLAC 30 MG/1 ML IVPush PRN (23:00)
[2017-10-12] MEDS: PROMETHAZINE 25 MG/ML, 1ML IM PRN (23:08)
[2017-10-13] MEDS: morphine SULFATE 10 MG/ML, 1ML IVPush PRN ×9 (00:03→20:37)
[2017-10-13] MEDS: NS + 20MEQ KCL 1,000 ML IV SCH ×3 (00:03→21:37)
[2017-10-13] MEDS: HEPARIN 5,000 UNITS/ML, 1ML SQ SCH ×3 (00:17→16:44)
[2017-10-13 01:28] VITALS: BP 96/62
[2017-10-13] MEDS: METOCLOPRAMIDE 5 MG/ML, 2ML IVPush SCH ×6 (02:30→21:37)
[2017-10-13] MEDS: PROMETHAZINE 25 MG/ML, 1ML IM PRN ×3 (04:08→17:41)
[2017-10-13 05:20] LABS: BASOPHILS # (AUTO) 0.04 x10^3/uL (0-0.1); BASOPHILS % (AUTO) 1 % (0-1); EOSINOPHILS # (AUTO) 0.07 x10^3/uL (0-0.4); EOSINOPHILS % (AUTO) 1 % (1-7); LYMPHOCYTES # (AUTO) 2.64 x10^3/uL (1-3.4); LYMPHOCYTES % (AUTO) 50 % (22-44); MD NO; MEAN CORPUSCULAR HEMOGLOBIN 27.5 pg (27.0-34.8); MEAN CORPUSCULAR HGB CONC 33.4 g/dL (32.4-35.8); MEAN CORPUSCULAR VOLUME 82.5 fL (80-100); MONOCYTES # (AUTO) 0.54 x10^3/uL (0.2-0.8); MONOCYTES % (AUTO) 10 % (2-9); NEUTROPHILS % (AUTO) 38 % (42-75); PLATELET COUNT 287 x10^3/uL (130-400); RED BLOOD COUNT 4.15 x10^6/uL (3.82-5.3); RED CELL DISTRIBUTION WIDTH 15.9 % (9.6-15.2)
[2017-10-13 05:31] LABS: CHLORIDE 112 mmol/L (98-107)
[2017-10-13 05:39] LABS: ALANINE AMINOTRANSFERASE 21 U/L (12-78); ALBUMIN 3.1 g/dL (3.4-5.0); ALKALINE PHOSPHATASE 68 U/L (45-117); ANION GAP 8 mmol/L (5-15); BILIRUBIN,TOTAL 0.8 mg/dL (0.2-1.0); CALCIUM 8.4 mg/dL (8.5-10.1); CREATININE 0.55 mg/dL (0.55-1.02); TOTAL PROTEIN 5.9 g/dL (6.4-8.2)
[2017-10-13 07:35] VITALS: BP 97/57
[2017-10-13 13:58] VITALS: BP 89/54
[2017-10-13 19:48] VITALS: BP 84/44
[2017-10-14] MEDS: HEPARIN 5,000 UNITS/ML, 1ML SQ SCH ×4 (00:40→23:48)
[2017-10-14 03:46] VITALS: BP 84/43
[2017-10-14] MEDS: METOCLOPRAMIDE 5 MG/ML, 2ML IVPush SCH ×4 (03:53→21:19)
[2017-10-14 07:13] VITALS: BP 97/56
[2017-10-14] MEDS: NS + 20MEQ KCL 1,000 ML IV SCH ×2 (07:51→18:00)
[2017-10-14] MEDS: ONDANSETRON ODT 4 MG PO PRN (07:52)
[2017-10-14] MEDS ORDERED: PROCHLORPERAZINE 5 MG/ML, 2ML IV PRN (08:00)
[2017-10-14] MEDS: morphine SULFATE 10 MG/ML, 1ML IVPush PRN ×2 (10:20→20:17)
[2017-10-14 13:45] VITALS: BP 94/59
[2017-10-14 18:42] VITALS: BP 97/60
[2017-10-15 01:12] VITALS: BP_SYST 75; BP_SYST 86; BP_DIAS 45; BP_DIAS 51
[2017-10-15] MEDS: METOCLOPRAMIDE 5 MG/ML, 2ML IVPush SCH ×2 (03:08→09:00)
[2017-10-15] MEDS: NS + 20MEQ KCL 1,000 ML IV SCH (05:04)
[2017-10-15 07:46] VITALS: BP 95/62
[2017-10-15] MEDS: HEPARIN 5,000 UNITS/ML, 1ML SQ SCH (08:00)
[2017-10-15] MEDS ORDERED: ONDA4TAB13 PO (08:06)
[2017-10-15] MEDS: ONDANSETRON ODT 4 MG PO PRN (08:20)
== END 2017-10-15 10:18 | disposition home or self-care (01) | DRG 921 ==
LOC: ED 21:40 → 3NW 22:04 → EDIP 22:04
PROVIDERS: ADMIT Internal Medicine; ATTEND Internal Medicine
DX: T85.848A Pain due to other internal prosthetic devices, implants and grafts, initial encounter (principal); K31.84 Gastroparesis; F31.9 Bipolar disorder, unspecified; G89.29 Other chronic pain; G43.909 Migraine, unspecified, not intractable, without status migrainosus; Y83.8 Other surgical procedures as the cause of abnormal reaction of the patient, or of later complication, without mention of misadventure at the time of the procedure; R19.7 Diarrhea, unspecified; K59.00 Constipation, unspecified; Z98.84 Bariatric surgery status; Z80.3 Family history of malignant neoplasm of breast; Z87.442 Personal history of urinary calculi; Z90.710 Acquired absence of both cervix and uterus; Z90.49 Acquired absence of other specified parts of digestive tract; Y92.89 Other specified places as the place of occurrence of the external cause
CPT/HCPCS: 36415; 74021; 80048; 80053; 82040; 83690; 83735; 85025; 99285; J1644; J1885; J2405; J2550; J3480; Q0162; J0780; J2270; J2765; J7040

== ENCOUNTER 2018-03-03 12:54 | Emergency (ER) | payer MEDICAID ==
[~2018-03-03] VITALS: Ht 167.6 cm; Wt 59.9 kg
[~2018-03-03 12:54] MED LIST changes: +ARIP400S3 IJ; +HYOS0.1268 PO; +ONDA4TAB13 PO
[2018-03-03] MEDS ORDERED: PROPARACAINE OPHTH 0.5%, 15ML EACHEYE ONE (13:30)
[2018-03-03] MEDS ORDERED: FLUORESCEIN OPHTHALMIC 1 MG STRIP EACHEYE ONE (13:30)
[2018-03-03 13:53] LABS: BASOPHILS # (AUTO) 0.07 x10^3/uL (0-0.1); BASOPHILS % (AUTO) 1 % (0-1); EOSINOPHILS # (AUTO) 0.16 x10^3/uL (0-0.4); EOSINOPHILS % (AUTO) 2 % (1-7); LYMPHOCYTES # (AUTO) 1.45 x10^3/uL (1-3.4); LYMPHOCYTES % (AUTO) 20 % (22-44); MD NO; MEAN CORPUSCULAR HEMOGLOBIN 24.6 pg (27.0-34.8); MEAN CORPUSCULAR HGB CONC 31.7 g/dL (32.4-35.8); MEAN CORPUSCULAR VOLUME 77.5 fL (80-100); MEAN PLATELET VOLUME 7.8 fL (7.4-10.4); MONOCYTES # (AUTO) 0.61 x10^3/uL (0.2-0.8); MONOCYTES % (AUTO) 8 % (2-9); NEUTROPHILS # (AUTO) 4.91 x10^3/uL (1.8-6.8); NEUTROPHILS % (AUTO) 68 % (42-75); PLATELET COUNT 381 x10^3/uL (130-400); RED BLOOD COUNT 4.96 x10^6/uL (3.82-5.3); RED CELL DISTRIBUTION WIDTH 17.9 % (9.6-15.2)
[2018-03-03 14:03] LABS: ALBUMIN 3.5 g/dL (3.4-5.0); ANION GAP 7 mmol/L (5-15); CHLORIDE 113 mmol/L (98-107)
[2018-03-03 14:07] LABS: ALANINE AMINOTRANSFERASE 22 U/L (12-78); ALKALINE PHOSPHATASE 90 U/L (45-117); BILIRUBIN,TOTAL 0.4 mg/dL (0.2-1.0); CREATININE 0.75 mg/dL (0.55-1.02); TOTAL PROTEIN 7.4 g/dL (6.4-8.2)
[2018-03-03] MEDS ORDERED: PROPARACAINE OPHTH 0.5%, 15ML ONE (15:18)
[2018-03-03 15:28] VITALS: BP 115/68
== END 2018-03-03 15:59 | disposition home or self-care (01) ==
LOC: ED 14:00
DX: S05.01XA Injury of conjunctiva and corneal abrasion without foreign body, right eye, initial encounter (principal); X58.XXXA Exposure to other specified factors, initial encounter; Y93.89 Activity, other specified; Y92.89 Other specified places as the place of occurrence of the external cause; Y99.8 Other external cause status
CPT/HCPCS: 36415; 80053; 85025; 99284

== ENCOUNTER 2018-05-18 08:06 | Emergency (ER) | payer MEDICAID ==
[~2018-05-18] VITALS: Ht 170.2 cm; Wt 52.0 kg
[~2018-05-18 08:06] MED LIST changes: -SENN1TAB7 PO; +SENN1TAB8 PO
[2018-05-18] MEDS ORDERED: MORPHINE SULFATE 4 MG/ML, 1ML IVPush PRN ×2 (09:00→10:30)
[2018-05-18] MEDS ORDERED: SODIUM CHLORIDE 0.9% 1,000ML IVBOLUS ONE (09:00)
[2018-05-18] MEDS ORDERED: FAMOTIDINE 20 MG/2 ML IVP ONE (09:00)
[2018-05-18] MEDS ORDERED: METOCLOPRAMIDE 5 MG/ML, 2ML IVPush ONE (09:00)
[2018-05-18] MEDS ORDERED: SODIUM CHLORIDE FLUSH 10ML SYR IVF ONE (09:00)
[2018-05-18 09:30] LABS: BASOPHILS # (AUTO) 0.01 x10^3/uL (0-0.1); BASOPHILS % (AUTO) 0 % (0-1); EOSINOPHILS # (AUTO) 0.01 x10^3/uL (0-0.4); EOSINOPHILS % (AUTO) 0 % (1-7); LYMPHOCYTES # (AUTO) 0.63 x10^3/uL (1-3.4); LYMPHOCYTES % (AUTO) 15 % (22-44); MD NO; MEAN CORPUSCULAR HEMOGLOBIN 24.9 pg (27.0-34.8); MEAN CORPUSCULAR HGB CONC 32.5 g/dL (32.4-35.8); MEAN CORPUSCULAR VOLUME 76.7 fL (80-100); MEAN PLATELET VOLUME 8.1 fL (7.4-10.4); MONOCYTES # (AUTO) 0.09 x10^3/uL (0.2-0.8); MONOCYTES % (AUTO) 2 % (2-9); NEUTROPHILS # (AUTO) 3.54 x10^3/uL (1.8-6.8); NEUTROPHILS % (AUTO) 83 % (42-75); PLATELET COUNT 339 x10^3/uL (130-400); RED BLOOD COUNT 4.96 x10^6/uL (3.82-5.3); RED CELL DISTRIBUTION WIDTH 17.7 % (9.6-15.2)
[2018-05-18 09:35] LABS: ALBUMIN 3.6 g/dL (3.4-5.0); ANION GAP 8 mmol/L (5-15); CALCIUM 8.9 mg/dL (8.5-10.1); CHLORIDE 108 mmol/L (98-107)
[2018-05-18 09:38] LABS: ALANINE AMINOTRANSFERASE 24 U/L (12-78); ALKALINE PHOSPHATASE 97 U/L (45-117); BILIRUBIN,TOTAL 0.3 mg/dL (0.2-1.0); CREATININE 0.65 mg/dL (0.55-1.02); TOTAL PROTEIN 7.4 g/dL (6.4-8.2)
[2018-05-18] MEDS ORDERED: MORPHINE SULFATE 4 MG/ML, 1ML ONE (09:48)
[2018-05-18] MEDS ORDERED: METOCLOPRAMIDE 5 MG/ML, 2ML ONE (09:48)
[2018-05-18] MEDS ORDERED: FAMOTIDINE 20 MG/2 ML ONE (09:48)
[2018-05-18] MEDS ORDERED: ONDANSETRON 2MG/ML, 2ML IVPush ONE (10:30)
[2018-05-18] MEDS ORDERED: OMNIPAQUE 350 MG/ML, 100ML BOTTLE ONE (10:37)
[2018-05-18] MEDS ORDERED: ONDANSETRON 2MG/ML, 2ML ONE (11:56)
[2018-05-18 11:59] VITALS: BP 119/71
== END 2018-05-18 12:15 | disposition home or self-care (01) ==
LOC: ED 10:07
DX: K31.84 Gastroparesis (principal); G89.29 Other chronic pain; F31.9 Bipolar disorder, unspecified; Z90.710 Acquired absence of both cervix and uterus
CPT/HCPCS: 36415; 74177; 80053; 83690; 85025; 96361; 96374; 96375; 99285; J2405; J2765; J7030; Q9967; S0028

== ENCOUNTER 2018-10-09 13:54 | Emergency (ER) | payer MEDICAID ==
[~2018-10-09] VITALS: Ht 170.2 cm; Wt 65.0 kg
[~2018-10-09 13:54] MED LIST changes: +SENN-177 PO; -SENN1TAB8 PO
[2018-10-09] MEDS ORDERED: METOCLOPRAMIDE 5 MG/ML, 2ML IVPush ONE (14:30)
[2018-10-09] MEDS ORDERED: KETOROLAC 30 MG/1 ML IVPush ONE (14:30)
[2018-10-09] MEDS ORDERED: DIPHENHYDRAMINE 50 MG/ML, 1ML IM ONE (14:30)
[2018-10-09] MEDS ORDERED: SODIUM CHLORIDE 0.9% 1,000ML IVBOLUS ONE (14:30)
[2018-10-09] MEDS ORDERED: DIAZEPAM 5 MG/ML, 2ML IVPush ONE (14:30)
[2018-10-09] MEDS ORDERED: SODIUM CHLORIDE FLUSH 10ML SYR IVF ONE (14:30)
[2018-10-09] MEDS ORDERED: METOCLOPRAMIDE 5 MG/ML, 2ML IM ONE (14:30)
[2018-10-09] MEDS ORDERED: KETOROLAC 30 MG/1 ML ONE (14:34)
[2018-10-09] MEDS ORDERED: METOCLOPRAMIDE 5 MG/ML, 2ML ONE (14:34)
[2018-10-09] MEDS ORDERED: DIAZEPAM 5 MG TABLET ONE (14:53)
[2018-10-09] MEDS ORDERED: DIAZEPAM 5 MG TABLET PO ONE (15:00)
[2018-10-09] MEDS ORDERED: MORPHINE SULFATE 4 MG/ML, 1ML ONE ×2 (15:27→16:18)
[2018-10-09] MEDS: MORPHINE SULFATE 4 MG/ML, 1ML IVPush PRN ×2 (15:28→16:21)
--- NOTE | 2018-10-09 15:30 | NUR ---
TASK RN: PT C/O DELGADO PAIN CONTINUING 03/27. REQUESTING ADDITIONAL MEDICATION. PT MED NOTED.
[2018-10-09] MEDS ORDERED: LIDOCAINE-MPF 1%, 5ML ONE (16:50)
[2018-10-09] MEDS ORDERED: BUPIVACAINE 0.25% ONE (16:50)
[2018-10-09] MEDS ORDERED: BUPIVACAINE/PF-EPI 0.25% 1:200K INFIL ONE (17:00)
[2018-10-09] MEDS ORDERED: LIDOCAINE 1%, 10ML INFIL ONE (17:00)
[2018-10-09] MEDS ORDERED: SUMATRIPTAN 6MG/0.5ML SQ ONE ×2 (17:20→17:30)
[2018-10-09] MEDS ORDERED: HYDROmorphone 2 MG/ML, 1ML IVPush ONE (18:00)
[2018-10-09] MEDS ORDERED: HYDROmorphone 1 MG/ML, 1ML ONE (18:01)
[2018-10-09 18:42] VITALS: BP 110/56
[2018-10-09] MEDS ORDERED: ONDANSETRON 2MG/ML, 2ML ONE (18:52)
== END 2018-10-09 19:13 | disposition home or self-care (01) ==
LOC: ED 14:51
DX: G44.211 Episodic tension-type headache, intractable (principal)
CPT/HCPCS: 70450; 96372; 96374; 96375; 96376; 99284; J1170; J1885; J2765; J3030; J7030

== ENCOUNTER 2018-11-15 07:58 | Emergency (ER) | payer MEDICAID ==
[~2018-11-15] VITALS: Ht 170.2 cm; Wt 63.8 kg
--- NOTE | 2018-11-15 08:14 | NUR ---
PATIENT ARRIVES TO THE ER WITH PAIN IN RIGHT LOWER DENTAL AREA AND SWELLING THAT BEGAN YESTERDAY AFTER MORNING. SHE STATES SHE HAS BROKEN TOOTH ON THAT SIDE 3RD TO BACK MOLAR AND IT BROKE A FEW MONTHS AGO AND SHE HASN'T GONE YET TO DENTIST BUT YESTERDAY IT GOT SWOLLEN. IT IS VISIBLY SWOLLEN ON RIGHT LOWER JAW.
[2018-11-15 09:00] VITALS: BP 98/78
--- NOTE | 2018-11-15 09:01 | NUR ---
patient discharge teaching reviewed, shows understanding. left with rx, boyfriend driving.
== END 2018-11-15 09:02 | disposition home or self-care (01) ==
LOC: ED 08:55
DX: K02.9 Dental caries, unspecified (principal); K04.7 Periapical abscess without sinus; R50.9 Fever, unspecified
CPT/HCPCS: 99283

== ENCOUNTER 2019-05-31 18:35 | Emergency (ER) | payer MEDICAID ==
[~2019-05-31] VITALS: Ht 170.2 cm; Wt 53.4 kg
[~2019-05-31 18:35] MED LIST changes: +ASCO500T6 PO; +CYCL-259 PO; +FERR-51 PO; +METO5VIA30 PO; +SCOP1PAT11 TD
[2019-05-31 21:17] LABS: ALBUMIN 4.1 g/dL (3.4-5.0); ANION GAP 7 mmol/L (5-15); CALCIUM 9.3 mg/dL (8.5-10.1); CHLORIDE 106 mmol/L (98-107)
[2019-05-31 21:18] LABS: MD YES; MEAN CORPUSCULAR HEMOGLOBIN 26.4 pg (27.0-34.8); MEAN CORPUSCULAR HGB CONC 32.1 g/dL (32.4-35.8); MEAN CORPUSCULAR VOLUME 82.3 fL (80-100); MEAN PLATELET VOLUME 8.3 fL (7.4-10.4); PLATELET COUNT 344 x10^3/uL (130-400); RED BLOOD COUNT 5.84 x10^6/uL (3.82-5.3); RED CELL DISTRIBUTION WIDTH 27.6 % (9.6-15.2)
[2019-05-31 21:21] LABS: ANISOCYTOSIS 1+; BAND#(MANUAL) 0.06 x10^3/uL; BANDS%(MANUAL) 1 % (0-7); LYMPH#(MANUAL) 1.83 x10^3/uL (1-3.4); LYMPHS% (MANUAL) 30 % (22-44); MONOS#(MANUAL) 0.31 x10^3/uL (0.3-2.7); MONOS% (MANUAL) 5 % (2-9); SEGS% (MANUAL) 64 % (42-75)
[2019-05-31 21:23] LABS: ALANINE AMINOTRANSFERASE 35 U/L (12-78); ALKALINE PHOSPHATASE 108 U/L (45-117); BILIRUBIN,TOTAL 0.5 mg/dL (0.2-1.0); CREATININE 0.75 mg/dL (0.55-1.02); TOTAL PROTEIN 7.5 g/dL (6.4-8.2)
[2019-05-31 21:24] LABS: <PLATELET ESTIMATE> ADEQUATE; <PLT MORPHOLOGY> NORMAL PLT MORPH; OVALOCYTES 1+
[2019-05-31] MEDS ORDERED: SODIUM CHLORIDE 0.9% 1,000ML IVBOLUS ONE (21:30)
[2019-05-31] MEDS ORDERED: ONDANSETRON 2MG/ML, 2ML IVPush ONE (21:30)
[2019-05-31] MEDS ORDERED: HYDROmorphone 2 MG/ML, 1ML IVPush PRN (21:30)
[2019-05-31] MEDS ORDERED: ONDANSETRON 2MG/ML, 2ML ONE (21:51)
[2019-05-31] MEDS ORDERED: HYDROmorphone 1 MG/ML, 1ML VIAL ONE (21:51)
--- NOTE | 2019-05-31 22:15 | NUR ---
PT HAS IV, PT MEDICATD FOR PAIN, ORDERED FLUIDS HANGING. PT IN CT AT THIS TIME.
--- NOTE | 2019-05-31 23:00 | NUR ---
PT GIVEN SPRITE AND WATER FOR PO CHALLANCE, PER ERP REQUEST. WILL CHECK ON PT.
--- NOTE | 2019-05-31 23:20 | NUR ---
PT STATED SHE WAS ABLE TO KEEP THE SPRITE DOWN, HOWEVER STILL FEELS NAUSEATED. WILL INFORM ERP.
[2019-05-31] MEDS ORDERED: OMNIPAQUE 350 MG/ML, 100ML BOTTLE ONE (23:27)
[2019-06-01] MEDS ORDERED: PROMETHAZINE 25 MG/ML, 1ML IM ONE (00:30)
[2019-06-01] MEDS ORDERED: PROMETHAZINE 25 MG/ML, 1ML ONE (00:43)
[2019-06-01 00:57] VITALS: BP 101/66
== END 2019-06-01 00:59 | disposition home or self-care (01) ==
LOC: ED 21:13
DX: R10.84 Generalized abdominal pain (principal); R11.2 Nausea with vomiting, unspecified; E86.9 Volume depletion, unspecified; E78.5 Hyperlipidemia, unspecified; G43.909 Migraine, unspecified, not intractable, without status migrainosus; F12.90 Cannabis use, unspecified, uncomplicated; Z90.710 Acquired absence of both cervix and uterus; F31.9 Bipolar disorder, unspecified; Z72.89 Other problems related to lifestyle; Z90.89 Acquired absence of other organs
CPT/HCPCS: 36415; 74177; 80053; 83690; 84703; 85025; 96361; 96372; 96374; 96375; 99284; J1170; J2405; J2550; J7030; Q9967

== ENCOUNTER 2020-10-21 13:44 | Emergency (ER) | payer MEDICARE, MEDICAID ==
[~2020-10-21] VITALS: Ht 170.2 cm; Wt 68.4 kg
[~2020-10-21 13:44] MED LIST changes: -ASCO500T6 PO; +ASCO500T9 PO; -CYCL-259 PO; +CYCL10TA2 PO; +HYDR-2214 PO; -HYDR-3240 PO; -OXYC-302 PO; -OXYC-306 PO; +OXYC1TAB12 PO; +OXYC1TAB16 PO; -SCOP1PAT11 TD; +SCOP1PAT13 TD
[2020-10-21] MEDS ORDERED: DIPHENHYDRAMINE 50 MG/ML, 1ML ONE (14:27)
[2020-10-21] MEDS ORDERED: PROCHLORPERAZINE 5 MG/ML, 2ML ONE (14:27)
[2020-10-21] MEDS ORDERED: PROCHLORPERAZINE 5 MG/ML, 2ML IVPush ONE (14:30)
[2020-10-21] MEDS ORDERED: SODIUM CHLORIDE FLUSH 10ML SYR IVF ONE (14:30)
[2020-10-21] MEDS ORDERED: SODIUM CHLORIDE 0.9% 1,000ML IVBOLUS ONE (14:30)
[2020-10-21] MEDS ORDERED: DIPHENHYDRAMINE 50 MG/ML, 1ML IV ONE (14:30)
[2020-10-21 14:41] LABS: BASOPHILS % (AUTO) 1 % (0-1); EOSINOPHILS % (AUTO) 0 % (1-7); LYMPHOCYTES % (AUTO) 19 % (22-44); MEAN CORPUSCULAR HEMOGLOBIN 26.3 pg (27.0-34.8); MEAN CORPUSCULAR HGB CONC 32.9 g/dL (32.4-35.8); MEAN PLATELET VOLUME 7.3 fL (7.4-10.4); MONOCYTES % (AUTO) 6 % (2-9); NEUTROPHILS % (AUTO) 75 % (42-75); PLATELET COUNT 371 x10^3/uL (130-400); RED BLOOD COUNT 4.53 x10^6/uL (3.82-5.3); RED CELL DISTRIBUTION WIDTH 15.9 % (9.6-15.2)
[2020-10-21 14:53] LABS: ALANINE AMINOTRANSFERASE 20 U/L (12-78); ALBUMIN 3.3 g/dL (3.4-5.0); ANION GAP 4 mmol/L (5-15); CALCIUM 8.7 mg/dL (8.5-10.1); CHLORIDE 111 mmol/L (98-107); CREATININE 0.58 mg/dL (0.55-1.02)
[2020-10-21 14:56] LABS: ALKALINE PHOSPHATASE 116 U/L (45-117); BILIRUBIN,TOTAL 0.4 mg/dL (0.2-1.0); TOTAL PROTEIN 6.7 g/dL (6.4-8.2)
[2020-10-21 16:25] LABS: MICROSCOPIC INDICATED
[2020-10-21 16:51] VITALS: BP 115/74
[2020-11-08] MEDS ORDERED: RIFA550T4 PO ×2 (10:37)
[2020-11-08] MEDS ORDERED: SUCR1ORA5 PO ×2 (10:37)
[2020-11-08] MEDS ORDERED: CIPR250T27 PO ×2 (10:37)
[2021-01-04] MEDS ORDERED: ONDA4TAB13 SL (14:38)
== END 2020-10-21 16:53 | disposition home or self-care (01) ==
LOC: ED 14:41
DX: G89.29 Other chronic pain (principal); R10.31 Right lower quadrant pain; R10.32 Left lower quadrant pain; E78.5 Hyperlipidemia, unspecified; R11.2 Nausea with vomiting, unspecified; G43.909 Migraine, unspecified, not intractable, without status migrainosus
CPT/HCPCS: 36415; 74022; 80053; 81001; 83690; 85025; 87077; 87086; 87186; 96361; 96374; 96375; 99284; J0780; J1200; J7030

== ENCOUNTER 2020-10-24 18:49 | Emergency (ER) | payer MEDICARE, MEDICAID ==
[~2020-10-24] VITALS: Ht 170.2 cm; Wt 67.9 kg
--- NOTE | 2020-10-24 19:16 | NUR ---
CC OF N/V X 1 WEEK. PT STATES SHE HAS HAD HER STOMACH REMOVED DUE TO "A BOTCHED GASTRIC BYPASS" AND OCCASIONALLY HER SYMPTOMS RETURN LIKE THIS AND "NOTHING HELPS". PT DOES STATE DILUADID, COMPAZINE, AND BENADRYL TOGETHER HAVE HELPED IN PAST. FRIEND AT BEDSIDE
--- NOTE | 2020-10-24 19:18 | NUR ---
PT ALSO REPORTS LAST BM WAS A WEEK AGO.
[2020-10-24] MEDS ORDERED: DIPHENHYDRAMINE 50 MG/ML, 1ML IVPush ONE (20:00)
[2020-10-24] MEDS ORDERED: HALOPERIDOL 5 MG/ML IV ONE (20:00)
[2020-10-24] MEDS ORDERED: PROCHLORPERAZINE 5 MG/ML, 2ML IVPush ONE (20:00)
[2020-10-24] MEDS ORDERED: SODIUM CHLORIDE 0.9% 1,000ML IVBOLUS ONE (20:00)
[2020-10-24] MEDS ORDERED: HALOPERIDOL 5 MG/ML ONE (20:23)
[2020-10-24] MEDS ORDERED: DIPHENHYDRAMINE 50 MG/ML, 1ML ONE (20:23)
[2020-10-24] MEDS ORDERED: PROCHLORPERAZINE 5 MG/ML, 2ML ONE (20:23)
[2020-10-24 21:11] LABS: BASOPHILS % (AUTO) 1 % (0-1); EOSINOPHILS % (AUTO) 1 % (1-7); LYMPHOCYTES % (AUTO) 31 % (22-44); MEAN CORPUSCULAR HEMOGLOBIN 26.1 pg (27.0-34.8); MEAN CORPUSCULAR HGB CONC 33.1 g/dL (32.4-35.8); MEAN PLATELET VOLUME 7.4 fL (7.4-10.4); MONOCYTES % (AUTO) 10 % (2-9); NEUTROPHILS % (AUTO) 57 % (42-75); PLATELET COUNT 332 x10^3/uL (130-400); RED BLOOD COUNT 4.44 x10^6/uL (3.82-5.3)
[2020-10-24 21:21] LABS: ALANINE AMINOTRANSFERASE 18 U/L (12-78); ALBUMIN 3.1 g/dL (3.4-5.0); ANION GAP 7 mmol/L (5-15); CALCIUM 8.3 mg/dL (8.5-10.1); CHLORIDE 109 mmol/L (98-107); CREATININE 0.56 mg/dL (0.55-1.02)
[2020-10-24 21:24] LABS: ALKALINE PHOSPHATASE 102 U/L (45-117); BILIRUBIN,TOTAL 0.4 mg/dL (0.2-1.0); TOTAL PROTEIN 6.2 g/dL (6.4-8.2)
[2020-10-24] MEDS ORDERED: POTASSIUM CHLORIDE 20 MEQ TAB.ER.PRT ONE (21:52)
[2020-10-24] MEDS ORDERED: POTASSIUM CHLORIDE 20 MEQ TAB.ER.PRT PO ONE (22:00)
--- NOTE | 2020-10-24 22:00 | NUR ---
PT UNABLE TO URINATE. REPORTS FEELING "MUCH BETTER" AFTER MEDICATIONS.
[2020-10-24 23:00] VITALS: BP 103/56
[2020-11-08] MEDS ORDERED: CIPR250T27 PO ×2 (10:37)
[2020-11-08] MEDS ORDERED: RIFA550T4 PO ×2 (10:37)
[2020-11-08] MEDS ORDERED: SUCR1ORA5 PO ×2 (10:37)
[2021-01-04] MEDS ORDERED: ONDA4TAB13 SL (14:38)
== END 2020-10-24 23:29 | disposition home or self-care (01) ==
LOC: ED 23:14
DX: R11.2 Nausea with vomiting, unspecified (principal); R10.10 Upper abdominal pain, unspecified; E87.6 Hypokalemia; E78.5 Hyperlipidemia, unspecified; G43.909 Migraine, unspecified, not intractable, without status migrainosus
CPT/HCPCS: 36415; 74021; 80053; 83690; 85025; 96361; 96374; 96375; 99284; J0780; J1200; J1630; J7030

== ENCOUNTER 2020-11-06 09:19 | Inpatient (IN) | payer MEDICARE, MEDICAID ==
[~2020-11-06] VITALS: Ht 170.2 cm; Wt 73.1 kg
[~2020-11-06 09:19] MED LIST changes: -OXYC1TAB12 PO; +OXYC1TAB14 PO; -OXYC1TAB16 PO; +OXYC1TAB17 PO; +SCOP1PAT11 TD; -SCOP1PAT13 TD
[2020-11-06] MEDS ORDERED: FAMOTIDINE 20 MG/2 ML ONE (09:42)
[2020-11-06] MEDS ORDERED: HALOPERIDOL 5 MG/ML ONE (09:42)
[2020-11-06] MEDS ORDERED: DIPHENHYDRAMINE 50 MG/ML, 1ML ONE (09:42)
[2020-11-06] MEDS ORDERED: FAMOTIDINE 20 MG/2 ML IVPush ONE (10:00)
[2020-11-06] MEDS ORDERED: DIPHENHYDRAMINE 50 MG/ML, 1ML IVPush ONE (10:00)
[2020-11-06] MEDS ORDERED: HALOPERIDOL 5 MG/ML IV ONE (10:00)
[2020-11-06] MEDS ORDERED: SODIUM CHLORIDE 0.9% 1,000ML IVBOLUS ONE (10:00)
--- NOTE | 2020-11-06 10:08 | NUR ---
PT TO ROOM 26 W/ C/O N/V STARTED LAST NIGHT. PT STATES HX SAME IN THE PAST W/O HOME MEDICATION EFFICIENT. PT STATES SHE WAS HERE LAST WEEK FOR SIMILAR SX. PT HAS EXTENSIVE ABD HX/SUGERIES. PT RESTING ON GURNEY. NADN. MONITORS APPLUIED. VSS. MEDICATED PER SEP. WARM BLANKET PROVIDED.
[2020-11-06 10:12] LABS: MICROSCOPIC INDICATED
--- NOTE | 2020-11-06 10:14 | NUR ---
PT TAKEN TO IMAGING IN STABLE CONDITION.
[2020-11-06 10:42] LABS: BASOPHILS % (AUTO) 0 % (0-1); EOSINOPHILS % (AUTO) 0 % (1-7); LYMPHOCYTES % (AUTO) 12 % (22-44); MEAN CORPUSCULAR HEMOGLOBIN 25.6 pg (27.0-34.8); MEAN CORPUSCULAR HGB CONC 32.5 g/dL (32.4-35.8); MEAN PLATELET VOLUME 7.5 fL (7.4-10.4); MONOCYTES % (AUTO) 6 % (2-9); NEUTROPHILS % (AUTO) 82 % (42-75); PLATELET COUNT 316 x10^3/uL (130-400); RED BLOOD COUNT 4.62 x10^6/uL (3.82-5.3); RED CELL DISTRIBUTION WIDTH 15.9 % (9.6-15.2)
[2020-11-06 10:44] LABS: MD NO
[2020-11-06 10:53] LABS: ALANINE AMINOTRANSFERASE 16 U/L (12-78); ALBUMIN 3.6 g/dL (3.4-5.0); ANION GAP 8 mmol/L (5-15); CALCIUM 8.9 mg/dL (8.5-10.1); CHLORIDE 107 mmol/L (98-107); CREATININE 0.55 mg/dL (0.55-1.02)
[2020-11-06 10:55] LABS: ALKALINE PHOSPHATASE 108 U/L (45-117); BILIRUBIN,TOTAL 0.4 mg/dL (0.2-1.0); TOTAL PROTEIN 7.1 g/dL (6.4-8.2)
--- NOTE | 2020-11-06 11:06 | NUR ---
PT CHART REVIEWED AND PLACED FOR RECHECK.
--- NOTE | 2020-11-06 11:07 | NUR ---
PT RESTING ON GURNEY. NADN. MELO.
[2020-11-06] MEDS ORDERED: CEFTRIAXONE 1,000 MG in DEXTROSE 5% 50 ML IVPB ONE (11:30)
--- NOTE | 2020-11-06 11:47 | NUR ---
PT STATES MILD IMPROVEMENT AFTER LEAD PERFORMANCE SUPPORT ANALYST. PT RESTING ON CLAUDIA. HEMANTH. VSS. AWARE OF POC FOR ADMIT AND IS AGREEABLE.
--- NOTE | 2020-11-06 12:36 | NUR ---
PT SLEEPING ON CLAUDIA. NADN. MELO.
--- NOTE | 2020-11-06 12:55 | NUR ---
REPORT GIVEN TO JOE MERCEDES RN. ALL QUESTIONS ANSWERED. AWAITING PT TRANSPORT.
[2020-11-06 14:19] VITALS: BP 131/85
[2020-11-06] MEDS: ONDANSETRON 2MG/ML, 2ML IVPush PRN (15:35)
[2020-11-06] MEDS ORDERED: DOCUSATE 100 MG CAPSULE PO PRN (17:00)
[2020-11-06] MEDS ORDERED: hydrALAzine 20 MG/ML, 1ML IVPush PRN (17:00)
[2020-11-06] MEDS ORDERED: ONDANSETRON 2MG/ML, 2ML IVPush PRN (17:00)
[2020-11-06] MEDS ORDERED: POLYETHYLENE GLYCOL 17 GM PACKET PO PRN (17:00)
[2020-11-06] MEDS ORDERED: TEMAZEPAM 15 MG CAPSULE PO PRN (17:00)
[2020-11-06] MEDS ORDERED: MELATONIN 5 MG TABLET PO PRN (17:00)
[2020-11-06] MEDS ORDERED: OXYcodone IR 5MG TABLET PO PRN (17:00)
[2020-11-06] MEDS ORDERED: PANTOPRAZOLE 40 MG IV IVPush SCH (17:00)
[2020-11-06] MEDS ORDERED: ONDANSETRON ODT 4 MG PO PRN (17:00)
[2020-11-06] MEDS ORDERED: LORazepam 0.5MG TABLET PO PRN (17:00)
[2020-11-06] MEDS: HEPARIN 5,000 UNITS/ML, 1ML SQ SCH (17:04)
[2020-11-06] MEDS: MORPHINE SULFATE 4 MG/ML, 1ML IVPush PRN (17:10)
[2020-11-06] MEDS ORDERED: OMNIPAQUE 350 MG/ML, 100ML BOTTLE ONE (17:30)
[2020-11-06] MEDS: ESOMEPRAZOLE 40 MG IV IVPush SCH (17:50)
[2020-11-06] MEDS: D5%-LACTATED RINGERS 1,000 ML IV SCH (17:50)
[2020-11-06] MEDS: METOCLOPRAMIDE 5 MG/ML, 2ML IVPush PRN (17:52)
[2020-11-06 20:01] VITALS: BP 91/60
[2020-11-06] MEDS: CEFTRIAXONE 1,000 MG in DEXTROSE 5% 50 ML IVPB SCH (23:29)
[2020-11-07 00:58] VITALS: BP 86/54
[2020-11-07] MEDS: HEPARIN 5,000 UNITS/ML, 1ML SQ SCH ×3 (01:36→15:52)
[2020-11-07] MEDS: METOCLOPRAMIDE 5 MG/ML, 2ML IVPush PRN (04:50)
[2020-11-07 05:08] LABS: BASOPHILS % (AUTO) 1 % (0-1); EOSINOPHILS % (AUTO) 2 % (1-7); LYMPHOCYTES % (AUTO) 50 % (22-44); MEAN CORPUSCULAR HEMOGLOBIN 25.7 pg (27.0-34.8); MEAN CORPUSCULAR HGB CONC 32.2 g/dL (32.4-35.8); MEAN PLATELET VOLUME 7.6 fL (7.4-10.4); MONOCYTES % (AUTO) 7 % (2-9); NEUTROPHILS % (AUTO) 40 % (42-75); PLATELET COUNT 269 x10^3/uL (130-400); RED BLOOD COUNT 4.04 x10^6/uL (3.82-5.3); RED CELL DISTRIBUTION WIDTH 16.1 % (9.6-15.2)
[2020-11-07 05:12] LABS: MD NO
[2020-11-07 05:16] LABS: ANION GAP 8 mmol/L (5-15); CALCIUM 8.4 mg/dL (8.5-10.1); CHLORIDE 108 mmol/L (98-107)
[2020-11-07 05:24] LABS: ALANINE AMINOTRANSFERASE 16 U/L (12-78); ALKALINE PHOSPHATASE 90 U/L (45-117); BILIRUBIN,TOTAL 0.3 mg/dL (0.2-1.0); CHOL/HDL RATIO 3.2; CHOLESTEROL, TOTAL 161 mg/dL (140-239); CREATININE 0.58 mg/dL (0.55-1.02); HDL CHOL % 32 % (28-40); HDL CHOLESTEROL (DIRECT) 51 mg/dL (40-60); LDL CHOLESTEROL,CALCULATED 91 mg/dL (54-169); LDL/HDL RATIO 1.8 (0.5-3.0); TRIGLYCERIDES 96 mg/dL (50-200); VLDL CHOLESTEROL 19 mg/dL (0-25)
[2020-11-07] MEDS: D5%-LACTATED RINGERS 1,000 ML IV SCH ×3 (05:26→18:38)
[2020-11-07] MEDS: ESOMEPRAZOLE 40 MG IV IVPush SCH (05:26)
[2020-11-07] MEDS: ONDANSETRON 2MG/ML, 2ML IVPush PRN (05:53)
[2020-11-07] MEDS: MORPHINE SULFATE 4 MG/ML, 1ML IVPush PRN ×2 (05:54→10:28)
[2020-11-07 07:56] VITALS: BP 118/81
[2020-11-07] MEDS ORDERED: LORazepam INTENSOL 2 MG/ML SL PRN (09:30)
[2020-11-07] MEDS ORDERED: CHLORHEXIDINE 15 ML UDC ONE (11:14)
[2020-11-07] MEDS ORDERED: CHLORHEXIDINE 15 ML UDC PO ONE (11:30)
[2020-11-07] MEDS ORDERED: PROPOFOL 50 ML ONE (12:07)
[2020-11-07] MEDS ORDERED: PROPOFOL 10 MG/ML, 20ML ONE (12:26)
[2020-11-07] MEDS ORDERED: EPHEDRINE 50 MG/ML, 1ML IVPush PRN (12:30)
[2020-11-07] MEDS ORDERED: MEPERIDINE/PF 25MG/0.5ML IVPush PRN (12:30)
[2020-11-07] MEDS ORDERED: DIPHENHYDRAMINE 50 MG/ML, 1ML IVPush PRN (12:30)
[2020-11-07] MEDS ORDERED: ONDANSETRON 2MG/ML, 2ML IVPush PRN (12:30)
[2020-11-07] MEDS ORDERED: EPHEDRINE 50 MG/ML, 1ML IM PRN (12:30)
[2020-11-07] MEDS ORDERED: morphine SULFATE 10 MG/ML, 1ML IVPush PRN (12:30)
[2020-11-07] MEDS ORDERED: LABETALOL 5MG/ML, 20ML IV PRN (12:30)
[2020-11-07] MEDS ORDERED: FENTANYL PF 100 MCG/2ML IV PRN (12:30)
[2020-11-07] MEDS ORDERED: DIAZEPAM 5 MG/ML, 2ML IVPush PRN (12:30)
[2020-11-07] MEDS ORDERED: PROMETHAZINE 25 MG/ML, 1ML IVPush PRN (12:30)
[2020-11-07] MEDS ORDERED: OXYcodone 5 MG/5 ML ORAL.SOL UDC PO PRN (12:30)
[2020-11-07 13:55] VITALS: BP 105/71
[2020-11-07] MEDS: SUCRALFATE 1 GM/10 ML UDC PO SCH ×2 (15:52→20:06)
[2020-11-07] MEDS: RIFAXIMIN 550 MG TABLET PO SCH ×2 (15:52→20:06)
[2020-11-07 18:39] VITALS: BP 88/54
[2020-11-07] MEDS ORDERED: QUETIAPINE 100MG TABLET PO SCH (21:00)
[2020-11-07 21:05] VITALS: BP 93/61
[2020-11-07 22:10] VITALS: BP 95/64
[2020-11-07] MEDS: CEFTRIAXONE 1,000 MG in DEXTROSE 5% 50 ML IVPB SCH (23:48)
[2020-11-08 00:31] VITALS: BP 86/53
[2020-11-08] MEDS: HEPARIN 5,000 UNITS/ML, 1ML SQ SCH ×2 (01:23→08:44)
[2020-11-08 03:40] VITALS: BP 88/59
[2020-11-08 05:23] LABS: BASOPHILS % (AUTO) 1 % (0-1); EOSINOPHILS % (AUTO) 2 % (1-7); LYMPHOCYTES % (AUTO) 61 % (22-44); MEAN CORPUSCULAR HEMOGLOBIN 25.9 pg (27.0-34.8); MEAN CORPUSCULAR HGB CONC 32.8 g/dL (32.4-35.8); MEAN PLATELET VOLUME 7.7 fL (7.4-10.4); MONOCYTES % (AUTO) 8 % (2-9); NEUTROPHILS % (AUTO) 28 % (42-75); PLATELET COUNT 250 x10^3/uL (130-400); RED BLOOD COUNT 4.08 x10^6/uL (3.82-5.3); RED CELL DISTRIBUTION WIDTH 15.6 % (9.6-15.2)
[2020-11-08 05:25] LABS: CALCIUM 8.1 mg/dL (8.5-10.1); CHLORIDE 111 mmol/L (98-107)
[2020-11-08 05:27] LABS: MD NO
[2020-11-08 05:31] LABS: ALANINE AMINOTRANSFERASE 14 U/L (12-78); ALBUMIN 2.6 g/dL (3.4-5.0); ALKALINE PHOSPHATASE 81 U/L (45-117); ANION GAP 5 mmol/L (5-15); BILIRUBIN,TOTAL 0.2 mg/dL (0.2-1.0); CREATININE 0.51 mg/dL (0.55-1.02); TOTAL PROTEIN 5.3 g/dL (6.4-8.2)
[2020-11-08] MEDS: SUCRALFATE 1 GM/10 ML UDC PO SCH ×2 (06:27→10:39)
[2020-11-08] MEDS: D5%-LACTATED RINGERS 1,000 ML IV SCH (06:59)
[2020-11-08 07:03] VITALS: BP 92/60
[2020-11-08] MEDS: RIFAXIMIN 550 MG TABLET PO SCH (08:45)
[2020-11-08] MEDS ORDERED: POTASSIUM CHLORIDE 40 MEQ in SODIUM CHLORIDE 0.9% 500 ML IV ONE (09:30)
[2020-11-08 10:31] VITALS: BP 100/67
[2020-11-08] MEDS ORDERED: METO5VIA30 PO (10:37)
[2020-11-08] MEDS ORDERED: CIPR250T27 PO (10:37)
[2020-11-08] MEDS ORDERED: SUCR1ORA5 PO (10:37)
[2020-11-08] MEDS ORDERED: RIFA550T4 PO (10:37)
[2020-11-08] MEDS ORDERED: POTASSIUM CHLORIDE 20 MEQ TAB.ER.PRT PO ONE (11:00)
== END 2020-11-08 12:06 | disposition home or self-care (01) | DRG 381 ==
LOC: ED 09:43 → EDIP 11:31 → 3N 13:07 → DCLOUNGE 11-08 11:49
PROVIDERS: ADMIT Hospitalist; ATTEND Internal Medicine
PROC: 0DJ08ZZ Inspection of Upper Intestinal Tract, Via Natural or Artificial Opening Endoscopic (ICD-10-PCS; principal; 2020-11-06)
DX: K28.9 Gastrojejunal ulcer, unspecified as acute or chronic, without hemorrhage or perforation (principal); E46 Unspecified protein-calorie malnutrition; N30.90 Cystitis, unspecified without hematuria; R10.30 Lower abdominal pain, unspecified; F31.9 Bipolar disorder, unspecified; B96.20 Unspecified Escherichia coli [E. coli] as the cause of diseases classified elsewhere; Z20.822 Contact with and (suspected) exposure to COVID-19; E86.0 Dehydration; F41.1 Generalized anxiety disorder; E78.5 Hyperlipidemia, unspecified; K21.9 Gastro-esophageal reflux disease without esophagitis; E66.01 Morbid (severe) obesity due to excess calories; F41.9 Anxiety disorder, unspecified; K44.9 Diaphragmatic hernia without obstruction or gangrene; E87.6 Hypokalemia; G43.909 Migraine, unspecified, not intractable, without status migrainosus; Z88.8 Allergy status to other drugs, medicaments and biological substances; Z87.442 Personal history of urinary calculi; Z98.84 Bariatric surgery status; Z90.710 Acquired absence of both cervix and uterus; Z90.3 Acquired absence of stomach [part of]; Z90.89 Acquired absence of other organs; Z90.49 Acquired absence of other specified parts of digestive tract; Z80.3 Family history of malignant neoplasm of breast; Z68.25 Body mass index [BMI] 25.0-25.9, adult; Z79.899 Other long term (current) drug therapy
CPT/HCPCS: 36415; 74021; 74176; 74178; 80053; 80061; 81001; 83690; 83735; 84100; 84443; 85025; 87077; 87086; 87186; 87635; 96374; 96375; 99285; G0378; J0696; J1644; J2405; J2704; Q9967; J1200; J1630; J2270; J2765; J7030; J7121

== ENCOUNTER 2020-11-12 19:34 | Emergency (ER) | payer MEDICARE, MEDICAID ==
[~2020-11-12] VITALS: Ht 170.2 cm; Wt 67.4 kg
[~2020-11-12 19:34] MED LIST changes: +CIPR250T27 PO; +RIFA550T4 PO; +SUCR1ORA5 PO
--- NOTE | 2020-11-12 20:05 | NUR ---
CC OF "I CANT STOP THROWING UP AND MY STOMACH IS IN HORRIBLE PAIN". HAS FOLLOW UP APPOIT WITH GI IN 2 MONTHS BUT "CANT WAIT THAT LONG, HOPING A GI DOC CAN SEE ME HERE".
[2020-11-12] MEDS ORDERED: SODIUM CHLORIDE 0.9% 1,000ML IVBOLUS ONE (20:30)
[2020-11-12] MEDS ORDERED: HALOPERIDOL 5 MG/ML IV ONE (20:30)
[2020-11-12] MEDS ORDERED: METOCLOPRAMIDE 5 MG/ML, 2ML IVPush ONE (20:30)
[2020-11-12] MEDS ORDERED: SODIUM CHLORIDE FLUSH 10ML SYR IVF ONE (20:30)
[2020-11-12] MEDS ORDERED: HALOPERIDOL 5 MG/ML ONE (20:43)
[2020-11-12] MEDS ORDERED: METOCLOPRAMIDE 5 MG/ML, 2ML ONE (20:44)
[2020-11-12 20:58] LABS: BASOPHILS % (AUTO) 0 % (0-1); EOSINOPHILS % (AUTO) 0 % (1-7); LYMPHOCYTES % (AUTO) 15 % (22-44); MEAN CORPUSCULAR HEMOGLOBIN 25.5 pg (27.0-34.8); MEAN PLATELET VOLUME 7.9 fL (7.4-10.4); MONOCYTES % (AUTO) 6 % (2-9); NEUTROPHILS % (AUTO) 78 % (42-75); PLATELET COUNT 343 x10^3/uL (130-400)
[2020-11-12 20:59] LABS: MD NO
--- NOTE | 2020-11-12 21:26 | NUR ---
PT SLEEPING, RESP EVEN AND UNLABORED.
[2020-11-12 21:47] LABS: ALANINE AMINOTRANSFERASE 40 U/L (12-78); ALBUMIN 4.1 g/dL (3.4-5.0); ANION GAP 10 mmol/L (5-15); CALCIUM 9.5 mg/dL (8.5-10.1); CHLORIDE 108 mmol/L (98-107); CREATININE 0.79 mg/dL (0.55-1.02)
[2020-11-12 21:51] LABS: ALKALINE PHOSPHATASE 119 U/L (45-117); BILIRUBIN,TOTAL 0.4 mg/dL (0.2-1.0); TOTAL PROTEIN 8.3 g/dL (6.4-8.2)
[2020-11-12 22:26] VITALS: BP 93/54
== END 2020-11-12 22:55 | disposition home or self-care (01) ==
LOC: ED 20:24
DX: R10.84 Generalized abdominal pain (principal); R11.2 Nausea with vomiting, unspecified; G43.909 Migraine, unspecified, not intractable, without status migrainosus
CPT/HCPCS: 36415; 80053; 83690; 84703; 85025; 96361; 96374; 96375; 99284; J1630; J2765; J7030

== ENCOUNTER 2020-11-14 09:55 | Emergency (ER) | payer MEDICARE, MEDICAID ==
[~2020-11-14] VITALS: Ht 170.2 cm; Wt 63.6 kg
--- NOTE | 2020-11-14 10:27 | NUR ---
ERMD AND ERPA AT BEDSIDE FOR EVALUATION.
[2020-11-14] MEDS ORDERED: MORPHINE SULFATE 4 MG/ML, 1ML ONE (10:29)
[2020-11-14] MEDS ORDERED: ONDANSETRON 2MG/ML, 2ML ONE (10:29)
[2020-11-14] MEDS ORDERED: SODIUM CHLORIDE 0.9% 1,000ML IVBOLUS ONE (10:30)
[2020-11-14] MEDS ORDERED: MORPHINE SULFATE 4 MG/ML, 1ML IVPush PRN (10:30)
[2020-11-14] MEDS ORDERED: ONDANSETRON 2MG/ML, 2ML IVPush ONE (10:30)
[2020-11-14] MEDS ORDERED: SODIUM CHLORIDE FLUSH 10ML SYR IVF ONE (10:30)
[2020-11-14] MEDS ORDERED: METOCLOPRAMIDE 5 MG/ML, 2ML ONE (10:42)
--- NOTE | 2020-11-14 10:50 | NUR ---
PATIENT WALKED BACK FROM TRIAGE WITH CHIEF C/O N/V OFF AND ON X1 MONTH. PATIENT WAS ADMITTED LAST WEEK, HAD CT AND SCOPE DONE AT THAT TIME. WAS DIAGNOSED WITH "CANDY CANE SYNDROME." PATIENT SEEN IN ER FOR N/V, SYMPTOMS NOT IMPROVING WITH DIET CHANGES. PATIENT HAS HISTORY OF GASTRIC BYPASS AND STOMACH REMOVAL SURGERY. VSS, ACCOMPANIED BY SIGNIFICANT OTHER.
[2020-11-14 10:53] LABS: BASOPHILS % (AUTO) 1 % (0-1); EOSINOPHILS % (AUTO) 1 % (1-7); LYMPHOCYTES % (AUTO) 19 % (22-44); MEAN CORPUSCULAR HEMOGLOBIN 25.7 pg (27.0-34.8); MEAN CORPUSCULAR HGB CONC 32.8 g/dL (32.4-35.8); MEAN PLATELET VOLUME 7.6 fL (7.4-10.4); MONOCYTES % (AUTO) 7 % (2-9); NEUTROPHILS % (AUTO) 73 % (42-75); PLATELET COUNT 336 x10^3/uL (130-400); RED BLOOD COUNT 4.81 x10^6/uL (3.82-5.3); RED CELL DISTRIBUTION WIDTH 16.2 % (9.6-15.2)
[2020-11-14 10:54] LABS: MD NO
[2020-11-14] MEDS ORDERED: METOCLOPRAMIDE 5 MG/ML, 2ML IVPush ONE (11:00)
[2020-11-14] MEDS ORDERED: HALOPERIDOL 5 MG/ML ONE ×2 (11:04→11:54)
[2020-11-14 11:05] LABS: ALBUMIN 3.7 g/dL (3.4-5.0); ANION GAP 9 mmol/L (5-15); CALCIUM 9.2 mg/dL (8.5-10.1); CHLORIDE 108 mmol/L (98-107)
[2020-11-14 11:08] LABS: ALANINE AMINOTRANSFERASE 36 U/L (12-78); ALKALINE PHOSPHATASE 101 U/L (45-117); BILIRUBIN,TOTAL 0.4 mg/dL (0.2-1.0); CREATININE 0.72 mg/dL (0.55-1.02); TOTAL PROTEIN 7.2 g/dL (6.4-8.2)
[2020-11-14] MEDS ORDERED: HALOPERIDOL 5 MG/ML IV ONE ×2 (11:30→12:00)
--- NOTE | 2020-11-14 11:34 | NUR ---
PATIENT RESTING IN GURNEY, REPORTS PAIN AND NAUSEA ARE BETTER, ABD PAIN NOW A 6/10. VSS, SIGNIFICANT OTHER AT BEDSIDE, CALL LIGHT WITHIN REACH. WAITING FOR LAB RESULTS.
--- NOTE | 2020-11-14 11:58 | NUR ---
PATIENT MEDICATED PER eMAR, NADN, VSS. PATIENT TO IMAGING.
[2020-11-14 13:22] VITALS: BP 126/76
--- NOTE | 2020-11-14 13:31 | NUR ---
IV removed with tip intact. Patient given discharge instructions and prescription and they have confirmed that they understand the instructions. Patient stable and ambulatory with steady gait from ED to friends vehicle.
== END 2020-11-14 13:32 | disposition home or self-care (01) ==
LOC: ED 11:15
DX: G89.29 Other chronic pain (principal); R10.13 Epigastric pain; R11.2 Nausea with vomiting, unspecified; Z90.89 Acquired absence of other organs
CPT/HCPCS: 36415; 74022; 80053; 83605; 83690; 85025; 93005; 96361; 96374; 96375; 96376; 99285; J1630; J2270; J2765; J7030

== ENCOUNTER 2020-11-20 07:15 | Inpatient (IN) | payer MEDICAID, MEDICARE ==
[~2020-11-20] VITALS: Ht 170.2 cm; Wt 71.0 kg
--- NOTE | 2020-11-20 07:30 | NUR ---
assumed care of pt. pt here c/o chronic N/V. pt has been seen here mulitple times for same. tp reports recent D/C from hospital and states that the advice line told her to come to the emergency room "because she is probably dehydrated" pt is currently sitting up on gurney using her cell phone. no vomiting noted at this time. no family at bedside warm blankets given
--- NOTE | 2020-11-20 07:35 | NUR ---
pt reports that she has an appointment with her GI doctor tomorrow
--- NOTE | 2020-11-20 07:44 | NUR ---
Dr. Ramirez at bedside for eval
[2020-11-20] MEDS ORDERED: DIPHENHYDRAMINE 50 MG/ML, 1ML IV ONE (08:00)
[2020-11-20] MEDS ORDERED: METOCLOPRAMIDE 5 MG/ML, 2ML IVPush ONE (08:00)
[2020-11-20] MEDS ORDERED: HALOPERIDOL 5 MG/ML IV ONE (08:00)
[2020-11-20] MEDS ORDERED: SODIUM CHLORIDE 0.9% 1,000ML IVBOLUS ONE (08:00)
--- NOTE | 2020-11-20 08:01 | NUR ---
attempted to enter room to initiate IV. pt in RAD
[2020-11-20 08:34] LABS: BASOPHILS % (AUTO) 1 % (0-1); EOSINOPHILS % (AUTO) 1 % (1-7); LYMPHOCYTES % (AUTO) 21 % (22-44); MEAN CORPUSCULAR HEMOGLOBIN 25.8 pg (27.0-34.8); MEAN CORPUSCULAR HGB CONC 32.6 g/dL (32.4-35.8); MEAN PLATELET VOLUME 7.6 fL (7.4-10.4); MONOCYTES % (AUTO) 11 % (2-9); NEUTROPHILS % (AUTO) 67 % (42-75); PLATELET COUNT 349 x10^3/uL (130-400); RED BLOOD COUNT 4.97 x10^6/uL (3.82-5.3); RED CELL DISTRIBUTION WIDTH 15.3 % (9.6-15.2)
[2020-11-20 08:42] LABS: MD NO
[2020-11-20 08:43] LABS: ALANINE AMINOTRANSFERASE 24 U/L (12-78); ALBUMIN 3.7 g/dL (3.4-5.0); ANION GAP 11 mmol/L (5-15); CHLORIDE 105 mmol/L (98-107)
[2020-11-20 08:45] LABS: ALKALINE PHOSPHATASE 104 U/L (45-117); BILIRUBIN,TOTAL 0.4 mg/dL (0.2-1.0); TOTAL PROTEIN 7.2 g/dL (6.4-8.2)
[2020-11-20] MEDS ORDERED: POTASSIUM CHLORIDE 40 MEQ in SODIUM CHLORIDE 0.9% 500 ML IV ONE ×2 (09:00→12:30)
[2020-11-20] MEDS ORDERED: DIPHENHYDRAMINE 50 MG/ML, 1ML ONE (09:05)
[2020-11-20] MEDS ORDERED: HALOPERIDOL 5 MG/ML ONE (09:05)
--- NOTE | 2020-11-20 09:22 | NUR ---
pt has bene sammie on color television console monitor. NSR Dr. Ramirez has been to bedside for recheck. pt to be admitted. pt updated on POC
--- NOTE | 2020-11-20 10:00 | NUR ---
pt sleeping in position of comfort no vomiting since admit personal heater in place IV infusing awaiting admit
--- NOTE | 2020-11-20 10:27 | NUR ---
bed assignment has been recieved for admit. report to Sarah ALEXANDER
[2020-11-20 10:47] VITALS: BP 99/63
[2020-11-20 12:29] VITALS: BP 114/79
[2020-11-20] MEDS ORDERED: SENNA/DOCUSATE TABLET PO PRN (12:30)
[2020-11-20] MEDS ORDERED: ONDANSETRON ODT 4 MG PO PRN (12:30)
[2020-11-20] MEDS ORDERED: POLYETHYLENE GLYCOL 17 GM PACKET PO PRN (12:30)
[2020-11-20] MEDS: SCOPOLAMINE 1MG PATCH TD SCH (12:30)
[2020-11-20] MEDS: METOCLOPRAMIDE 5 MG/ML, 2ML IVPush SCH ×2 (13:04→18:15)
[2020-11-20] MEDS: ENOXAPARIN 40 MG/0.4 ML SQ SCH (13:04)
[2020-11-20] MEDS: LACTATED RINGERS 1,000 ML IV SCH (13:05)
[2020-11-20] MEDS: ONDANSETRON 2MG/ML, 2ML IVPush PRN (14:12)
[2020-11-20] MEDS: SUCRALFATE 1 GM/10 ML UDC PO SCH ×2 (16:00→21:05)
[2020-11-20] MEDS ORDERED: PROMETHAZINE 25 MG SUPP PR PRN (16:00)
[2020-11-20 18:55] LABS: MICROSCOPIC NOT IND
[2020-11-20] MEDS ORDERED: QUETIAPINE 100MG TABLET PO SCH (21:00)
[2020-11-20 21:02] VITALS: BP 109/70
[2020-11-21] MEDS: METOCLOPRAMIDE 5 MG/ML, 2ML IVPush SCH ×4 (01:35→22:21)
[2020-11-21 01:38] VITALS: BP 95/62
[2020-11-21] MEDS: LACTATED RINGERS 1,000 ML IV SCH ×2 (03:24→11:20)
[2020-11-21 05:29] LABS: BASOPHILS % (AUTO) 1 % (0-1); EOSINOPHILS % (AUTO) 3 % (1-7); LYMPHOCYTES % (AUTO) 57 % (22-44); MEAN CORPUSCULAR HEMOGLOBIN 25.7 pg (27.0-34.8); MEAN CORPUSCULAR HGB CONC 32.6 g/dL (32.4-35.8); MEAN PLATELET VOLUME 7.7 fL (7.4-10.4); MONOCYTES % (AUTO) 8 % (2-9); NEUTROPHILS % (AUTO) 32 % (42-75); PLATELET COUNT 296 x10^3/uL (130-400); RED BLOOD COUNT 4.38 x10^6/uL (3.82-5.3); RED CELL DISTRIBUTION WIDTH 15.5 % (9.6-15.2)
[2020-11-21 05:35] LABS: CALCIUM 8.2 mg/dL (8.5-10.1); CHOLESTEROL, TOTAL 153 mg/dL (140-239); TOTAL IRON BINDING CAPACITY 338 mcg/dL (250-450)
[2020-11-21 05:42] LABS: % IRON SATURATION 6 % (20-55); ALANINE AMINOTRANSFERASE 17 U/L (12-78); ALKALINE PHOSPHATASE 80 U/L (45-117); BILIRUBIN,TOTAL 0.4 mg/dL (0.2-1.0); CHOL/HDL RATIO 3.3; CREATININE 0.48 mg/dL (0.55-1.02); HDL CHOL % 30 % (28-40); HDL CHOLESTEROL (DIRECT) 46 mg/dL (40-60); IRON LEVEL 20 mcg/dL (50-170); LDL CHOLESTEROL,CALCULATED 97 mg/dL (54-169); LDL/HDL RATIO 2.1 (0.5-3.0); PREALBUMIN 19.1 mg/dL (20.0-40.0); TOTAL PROTEIN 5.7 g/dL (6.4-8.2); TRIGLYCERIDES 52 mg/dL (50-200); VLDL CHOLESTEROL 10 mg/dL (0-25)
[2020-11-21 05:43] LABS: ANION GAP 5 mmol/L (5-15); CHLORIDE 113 mmol/L (98-107)
[2020-11-21] MEDS: SUCRALFATE 1 GM/10 ML UDC PO SCH ×3 (06:34→16:00)
[2020-11-21 06:39] LABS: MD SCAN
[2020-11-21 08:10] VITALS: BP 90/62
[2020-11-21] MEDS: ONDANSETRON 2MG/ML, 2ML IVPush PRN (08:37)
[2020-11-21] MEDS ORDERED: ONDANSETRON 2MG/ML, 2ML ONE (10:35)
[2020-11-21] MEDS ORDERED: DEXAMETHASONE 4 MG/ML, 1ML ONE (10:35)
[2020-11-21] MEDS: LORazepam 2 MG/ML, 1ML IVPush PRN (10:56)
[2020-11-21] MEDS ORDERED: MIDAZOLAM 1 MG/ML, 2ML ONE (11:40)
[2020-11-21] MEDS ORDERED: SUCCINYLCHOLINE 20 MG/ML, 10ML ONE (11:41)
[2020-11-21] MEDS ORDERED: ROCURONIUM 10MG/ML,5ML ONE (11:41)
[2020-11-21] MEDS ORDERED: PROPOFOL 10 MG/ML, 20ML ONE (11:46)
[2020-11-21] MEDS ORDERED: OMNIPAQUE 350 MG/ML, 50 ML BOTTLE ONE ×2 (11:58→12:11)
[2020-11-21] MEDS ORDERED: PROPOFOL 50 ML ONE ×2 (12:05→12:23)
[2020-11-21] MEDS: ENOXAPARIN 40 MG/0.4 ML SQ SCH (12:21)
[2020-11-21] MEDS ORDERED: hydrALAzine 20 MG/ML, 1ML IV PRN (13:00)
[2020-11-21] MEDS ORDERED: MEPERIDINE/PF 25MG/0.5ML IVPush PRN (13:00)
[2020-11-21] MEDS ORDERED: ONDANSETRON 2MG/ML, 2ML IVPush PRN (13:00)
[2020-11-21] MEDS ORDERED: ALBUTEROL SULFATE 2.5 MG/3 ML NPPB PRN (13:00)
[2020-11-21] MEDS ORDERED: LABETALOL 5MG/ML, 20ML IV PRN (13:00)
[2020-11-21] MEDS ORDERED: PROMETHAZINE 25 MG/ML, 1ML IVPush PRN (13:00)
[2020-11-21] MEDS ORDERED: FENTANYL PF 100 MCG/2ML IV PRN (13:00)
[2020-11-21] MEDS ORDERED: PROMETHAZINE 12.5 MG SUPP PR PRN (13:00)
[2020-11-21] MEDS ORDERED: HYDROmorphone 1 MG/ML, 1ML INJ IVPush PRN (13:00)
[2020-11-21] MEDS ORDERED: DIPHENHYDRAMINE 50 MG/ML, 1ML IVPush PRN ×2 (13:00)
[2020-11-21] MEDS ORDERED: EPHEDRINE 50 MG/ML, 1ML IVPush PRN (13:00)
[2020-11-21 13:52] VITALS: BP 101/67
[2020-11-21 19:50] VITALS: BP 108/65
[2020-11-21] MEDS: QUETIAPINE 100MG TABLET NG SCH (21:59)
[2020-11-22 01:10] VITALS: BP 105/67
[2020-11-22] MEDS: LORazepam 2 MG/ML, 1ML IVPush PRN ×2 (02:37→13:48)
[2020-11-22] MEDS: PHENOL THROAT SPRAY BOTTLE MM PRN ×2 (03:05→10:35)
[2020-11-22] MEDS: METOCLOPRAMIDE 5 MG/ML, 2ML IVPush SCH ×4 (04:52→22:17)
[2020-11-22 05:06] LABS: BASOPHILS % (AUTO) 0 % (0-1); EOSINOPHILS % (AUTO) 0 % (1-7); LYMPHOCYTES % (AUTO) 34 % (22-44); MEAN CORPUSCULAR HEMOGLOBIN 25.4 pg (27.0-34.8); MEAN CORPUSCULAR HGB CONC 32.8 g/dL (32.4-35.8); MEAN PLATELET VOLUME 8.1 fL (7.4-10.4); MONOCYTES % (AUTO) 7 % (2-9); NEUTROPHILS % (AUTO) 59 % (42-75); PLATELET COUNT 282 x10^3/uL (130-400); RED BLOOD COUNT 4.53 x10^6/uL (3.82-5.3); RED CELL DISTRIBUTION WIDTH 15.3 % (9.6-15.2)
[2020-11-22 05:07] LABS: MD NO
[2020-11-22 05:15] LABS: ALBUMIN 3.2 g/dL (3.4-5.0); CHLORIDE 108 mmol/L (98-107)
[2020-11-22 05:19] LABS: ALANINE AMINOTRANSFERASE 20 U/L (12-78); ALKALINE PHOSPHATASE 87 U/L (45-117); ANION GAP 6 mmol/L (5-15); BILIRUBIN,TOTAL 0.4 mg/dL (0.2-1.0); CALCIUM 8.6 mg/dL (8.5-10.1); CREATININE 0.57 mg/dL (0.55-1.02); TOTAL PROTEIN 6.1 g/dL (6.4-8.2)
[2020-11-22] MEDS: LACTATED RINGERS 1,000 ML IV SCH (06:20)
[2020-11-22] MEDS ORDERED: SUCRALFATE 1 GM/10 ML UDC NG SCH (07:00)
[2020-11-22 07:05] VITALS: BP 110/69
[2020-11-22] MEDS: SUCRALFATE 1 GM TABLET PO SCH ×4 (08:12→21:22)
[2020-11-22] MEDS: ENOXAPARIN 40 MG/0.4 ML SQ SCH (11:40)
[2020-11-22] MEDS: IRON SUCROSE COMPLEX 100MG/5ML IV SCH (11:40)
[2020-11-22] MEDS ORDERED: LORazepam 2 MG/ML, 1ML IVPush PRN (13:00)
[2020-11-22 13:44] VITALS: BP 102/68
[2020-11-22] MEDS: ONDANSETRON 2MG/ML, 2ML IVPush PRN (15:42)
[2020-11-22] MEDS: SCOPOLAMINE 1MG PATCH TD SCH (15:46)
[2020-11-22 19:48] VITALS: BP 105/69
[2020-11-22] MEDS ORDERED: QUETIAPINE 100MG TABLET NG SCH (21:00)
[2020-11-22] MEDS: QUETIAPINE 100MG TABLET NG SCH (21:22)
[2020-11-23 01:22] VITALS: BP 96/63
[2020-11-23] MEDS: METOCLOPRAMIDE 5 MG/ML, 2ML IVPush SCH ×4 (04:19→22:36)
[2020-11-23 05:53] LABS: ALANINE AMINOTRANSFERASE 19 U/L (12-78); ALBUMIN 2.9 g/dL (3.4-5.0); ANION GAP 4 mmol/L (5-15); BASOPHILS % (AUTO) 1 % (0-1); CHLORIDE 112 mmol/L (98-107); CREATININE 0.54 mg/dL (0.55-1.02); EOSINOPHILS % (AUTO) 1 % (1-7); LYMPHOCYTES % (AUTO) 41 % (22-44); MEAN CORPUSCULAR HEMOGLOBIN 25.7 pg (27.0-34.8); MEAN CORPUSCULAR HGB CONC 32.8 g/dL (32.4-35.8); MEAN PLATELET VOLUME 7.9 fL (7.4-10.4); MONOCYTES % (AUTO) 9 % (2-9); NEUTROPHILS % (AUTO) 49 % (42-75); PLATELET COUNT 272 x10^3/uL (130-400); RED BLOOD COUNT 4.21 x10^6/uL (3.82-5.3); RED CELL DISTRIBUTION WIDTH 15.4 % (9.6-15.2)
[2020-11-23 05:56] LABS: ALKALINE PHOSPHATASE 76 U/L (45-117); BILIRUBIN,TOTAL 0.1 mg/dL (0.2-1.0); MD NO; TOTAL PROTEIN 5.4 g/dL (6.4-8.2)
[2020-11-23 06:59] VITALS: BP 97/64
[2020-11-23] MEDS: SUCRALFATE 1 GM TABLET PO SCH ×4 (08:18→21:03)
[2020-11-23] MEDS: IRON SUCROSE COMPLEX 100MG/5ML IV SCH (08:19)
[2020-11-23] MEDS: ENOXAPARIN 40 MG/0.4 ML SQ SCH (11:07)
[2020-11-23] MEDS: LORazepam 2 MG/ML, 1ML IVPush PRN (13:16)
[2020-11-23 13:28] VITALS: BP 99/63
[2020-11-23] MEDS: PHENOL THROAT SPRAY BOTTLE MM PRN (17:33)
[2020-11-23 18:48] VITALS: BP 100/63
[2020-11-23] MEDS: QUETIAPINE 100MG TABLET NG SCH (21:04)
[2020-11-24 00:37] VITALS: BP 101/65
[2020-11-24] MEDS: METOCLOPRAMIDE 5 MG/ML, 2ML IVPush SCH ×4 (04:21→23:57)
[2020-11-24 05:27] LABS: BASOPHILS % (AUTO) 1 % (0-1); EOSINOPHILS % (AUTO) 3 % (1-7); LYMPHOCYTES % (AUTO) 34 % (22-44); MEAN CORPUSCULAR HEMOGLOBIN 25.6 pg (27.0-34.8); MEAN CORPUSCULAR HGB CONC 32.5 g/dL (32.4-35.8); MONOCYTES % (AUTO) 9 % (2-9); NEUTROPHILS % (AUTO) 53 % (42-75); PLATELET COUNT 297 x10^3/uL (130-400); RED BLOOD COUNT 4.68 x10^6/uL (3.82-5.3); RED CELL DISTRIBUTION WIDTH 15.7 % (9.6-15.2)
[2020-11-24 05:29] LABS: MD NO
[2020-11-24 05:36] LABS: CHLORIDE 110 mmol/L (98-107)
[2020-11-24 05:41] LABS: ALANINE AMINOTRANSFERASE 16 U/L (12-78); ALBUMIN 3.1 g/dL (3.4-5.0); ALKALINE PHOSPHATASE 83 U/L (45-117); ANION GAP 5 mmol/L (5-15); BILIRUBIN,TOTAL 0.1 mg/dL (0.2-1.0); CALCIUM 8.3 mg/dL (8.5-10.1); TOTAL PROTEIN 6.2 g/dL (6.4-8.2)
[2020-11-24 06:34] VITALS: BP 105/66
[2020-11-24] MEDS: SUCRALFATE 1 GM TABLET PO SCH ×4 (07:46→20:18)
[2020-11-24] MEDS: IRON SUCROSE COMPLEX 100MG/5ML IV SCH (11:01)
[2020-11-24] MEDS: ENOXAPARIN 40 MG/0.4 ML SQ SCH (12:30)
[2020-11-24 13:34] VITALS: BP 100/63
[2020-11-24 20:13] VITALS: BP 97/64
[2020-11-24] MEDS: QUETIAPINE 100MG TABLET NG SCH (20:19)
[2020-11-25 00:37] VITALS: BP 94/60
[2020-11-25] MEDS: METOCLOPRAMIDE 5 MG/ML, 2ML IVPush SCH ×3 (05:40→18:15)
[2020-11-25 07:56] VITALS: BP 101/71
[2020-11-25 08:39] LABS: ALBUMIN 3.2 g/dL (3.4-5.0); ANION GAP 6 mmol/L (5-15); CALCIUM 8.8 mg/dL (8.5-10.1); CHLORIDE 108 mmol/L (98-107)
[2020-11-25] MEDS: SUCRALFATE 1 GM TABLET PO SCH ×4 (08:44→20:55)
[2020-11-25] MEDS: OXYcodone 5 MG/5 ML ORAL.SOL UDC PO PRN (08:44)
[2020-11-25] MEDS: ACETAMINOPHEN 325 MG TABLET PO PRN ×2 (08:44→18:14)
[2020-11-25 08:51] LABS: ALANINE AMINOTRANSFERASE 15 U/L (12-78); ALKALINE PHOSPHATASE 83 U/L (45-117); BILIRUBIN,TOTAL 0.2 mg/dL (0.2-1.0); CREATININE 0.56 mg/dL (0.55-1.02); TOTAL PROTEIN 6.6 g/dL (6.4-8.2)
[2020-11-25] MEDS ORDERED: BUTALB/APAP/CAFFEINE 50MG/325MG/40MG PO ONE (11:30)
[2020-11-25] MEDS: ENOXAPARIN 40 MG/0.4 ML SQ SCH (12:13)
[2020-11-25 12:40] VITALS: BP 100/57
[2020-11-25] MEDS: LORazepam 2 MG/ML, 1ML IVPush PRN (12:40)
[2020-11-25] MEDS: OXYcodone IR 5MG TABLET PO PRN ×2 (15:30→22:22)
[2020-11-25 18:54] VITALS: BP 92/61
[2020-11-25] MEDS: QUETIAPINE 100MG TABLET NG SCH (20:55)
[2020-11-26] MEDS: METOCLOPRAMIDE 5 MG/ML, 2ML IVPush SCH ×3 (00:20→13:48)
[2020-11-26 01:16] VITALS: BP 92/53
[2020-11-26] MEDS: SUCRALFATE 1 GM TABLET PO SCH ×2 (06:32→11:50)
[2020-11-26 07:21] VITALS: BP 89/57
[2020-11-26] MEDS: ENOXAPARIN 40 MG/0.4 ML SQ SCH (12:30)
[2020-11-26 13:35] VITALS: BP 90/61
[2020-11-26] MEDS: OXYcodone 5 MG/5 ML ORAL.SOL UDC PO PRN (13:57)
[2020-11-26] MEDS: SCOPOLAMINE 1MG PATCH TD SCH (15:23)
== END 2020-11-26 16:40 | disposition home or self-care (01) | DRG 392 ==
LOC: ED 07:55 → EDIP 10:01 → 3N 11:02
PROVIDERS: ADMIT Family Medicine; ATTEND Hospitalist
PROC: 0DH68UZ Insertion of Feeding Device into Stomach, Via Natural or Artificial Opening Endoscopic (ICD-10-PCS; principal; 2020-11-21 12:00)
DX: R11.2 Nausea with vomiting, unspecified (principal); E44.0 Moderate protein-calorie malnutrition; K59.89 Other specified functional intestinal disorders; Q89.9 Congenital malformation, unspecified; Z90.49 Acquired absence of other specified parts of digestive tract; E87.6 Hypokalemia; D64.9 Anemia, unspecified; E78.5 Hyperlipidemia, unspecified; E86.0 Dehydration; F31.9 Bipolar disorder, unspecified; F41.9 Anxiety disorder, unspecified; K21.9 Gastro-esophageal reflux disease without esophagitis; F41.1 Generalized anxiety disorder; E66.01 Morbid (severe) obesity due to excess calories; G43.909 Migraine, unspecified, not intractable, without status migrainosus; Z87.442 Personal history of urinary calculi; Z90.3 Acquired absence of stomach [part of]; Z90.710 Acquired absence of both cervix and uterus; Z98.84 Bariatric surgery status; Z88.8 Allergy status to other drugs, medicaments and biological substances; Z20.822 Contact with and (suspected) exposure to COVID-19
CPT/HCPCS: 36415; 70470; 74018; 74021; 74150; 76000; 80053; 80061; 81003; 82533; 82728; 83540; 83550; 83690; 83735; 84100; 84134; 85025; 87635; 93005; 96361; 96365; 99285; G0378; J1100; J1170; J1650; J1756; J2250; J2405; J2704; J3480; Q0162; Q9967; C1769; J0330; J1200; J1630; J2060; J2765; J7030; J7040; J7120

== ENCOUNTER 2020-11-28 17:53 | Emergency (ER) | payer MEDICARE ==
[~2020-11-28] VITALS: Ht 170.2 cm; Wt 86.6 kg
[2020-11-28] MEDS ORDERED: SODIUM CHLORIDE 0.9% 1,000ML IVBOLUS ONE (19:00)
[2020-11-28 19:06] LABS: BASOPHILS % (AUTO) 0 % (0-1); EOSINOPHILS % (AUTO) 0 % (1-7); LYMPHOCYTES % (AUTO) 11 % (22-44); MEAN CORPUSCULAR HEMOGLOBIN 26.1 pg (27.0-34.8); MEAN CORPUSCULAR HGB CONC 32.7 g/dL (32.4-35.8); MEAN PLATELET VOLUME 8.2 fL (7.4-10.4); MONOCYTES % (AUTO) 3 % (2-9); NEUTROPHILS % (AUTO) 86 % (42-75); PLATELET COUNT 353 x10^3/uL (130-400); RED CELL DISTRIBUTION WIDTH 16.2 % (9.6-15.2)
[2020-11-28 19:08] LABS: MD NO
[2020-11-28 19:13] LABS: ALANINE AMINOTRANSFERASE 25 U/L (12-78); ALBUMIN 3.8 g/dL (3.4-5.0); ANION GAP 8 mmol/L (5-15); CALCIUM 9.2 mg/dL (8.5-10.1); CHLORIDE 105 mmol/L (98-107); CREATININE 0.96 mg/dL (0.55-1.02)
[2020-11-28 19:14] LABS: ALKALINE PHOSPHATASE 101 U/L (45-117); BILIRUBIN,TOTAL 0.4 mg/dL (0.2-1.0); TOTAL PROTEIN 7.8 g/dL (6.4-8.2)
--- NOTE | 2020-11-28 20:03 | NUR ---
PT AMBULATES BACK TO ROOM 11.
--- NOTE | 2020-11-28 20:03 | NUR ---
PT BIB FRIEND VIA POV. PER PT SHE HAS HAD ABD PAIN AND VOMITING TODAY, AND WAS DISCHARGED FROM HOSPITAL ON TUESDAY, SHE WAS ADMITTED FOR N/V. PER PT SHE WAS SUPPOSED TO GO TO A GI DOCTOR TODAY, BUT WAS LATE AND SO THEY WERE UNABLE TO SEE HER. PT STATES SHE IS CONTINUING TO VOMIT AND HAVE 10/10 ABD PAIN. PT RESTING IN [facility], MONITORING IN PLACE, NADN AT THIS TIME, WCTM.
--- NOTE | 2020-11-28 20:04 | NUR ---
PER CUSTOM BOW MAKER PT IN ROOM STICKING FINGERS DOWN THROAT AND GAGGING.
[2020-11-28] MEDS ORDERED: METOCLOPRAMIDE 5 MG/ML, 2ML ONE (20:29)
[2020-11-28] MEDS ORDERED: HALOPERIDOL 5 MG/ML ONE (20:29)
[2020-11-28] MEDS ORDERED: METOCLOPRAMIDE 5 MG/ML, 2ML IVPush ONE (20:30)
[2020-11-28] MEDS ORDERED: SODIUM CHLORIDE FLUSH 10ML SYR IVF ONE (20:30)
[2020-11-28] MEDS ORDERED: HALOPERIDOL 5 MG/ML IV ONE (20:30)
[2020-11-28] MEDS ORDERED: MORPHINE SULFATE 4 MG/ML, 1ML ONE (20:30)
[2020-11-28] MEDS ORDERED: MORPHINE SULFATE 4 MG/ML, 1ML IVPush PRN (20:30)
[2020-11-28 21:08] VITALS: BP 98/53
== END 2020-11-28 22:51 | disposition home or self-care (01) ==
LOC: ED 18:09
DX: R11.2 Nausea with vomiting, unspecified (principal); R10.13 Epigastric pain; R94.31 Abnormal electrocardiogram [ECG] [EKG]; E78.5 Hyperlipidemia, unspecified; G43.909 Migraine, unspecified, not intractable, without status migrainosus; Z90.710 Acquired absence of both cervix and uterus
CPT/HCPCS: 36415; 80053; 83690; 85025; 93005; 96361; 96374; 96375; 99284; J1630; J2270; J2765; J7030

== ENCOUNTER 2020-11-30 19:03 | Emergency (ER) | payer MEDICARE ==
[~2020-11-30] VITALS: Ht 170.2 cm; Wt 67.3 kg
[2020-11-30] MEDS ORDERED: ONDANSETRON ODT 4 MG PO ONE (19:30)
[2020-11-30 20:08] LABS: BASOPHILS % (AUTO) 1 % (0-1); EOSINOPHILS % (AUTO) 1 % (1-7); LYMPHOCYTES % (AUTO) 32 % (22-44); MEAN CORPUSCULAR HGB CONC 32.9 g/dL (32.4-35.8); MEAN PLATELET VOLUME 7.7 fL (7.4-10.4); MONOCYTES % (AUTO) 10 % (2-9); NEUTROPHILS % (AUTO) 57 % (42-75); PLATELET COUNT 324 x10^3/uL (130-400); RED BLOOD COUNT 5.08 x10^6/uL (3.82-5.3)
[2020-11-30 20:09] LABS: MD NO
--- NOTE | 2020-11-30 20:11 | NUR ---
BREAK MACHINE STRIPER: PT TO ROOM FROM LOBBY.
[2020-11-30 20:16] LABS: ALANINE AMINOTRANSFERASE 30 U/L (12-78); ALBUMIN 3.6 g/dL (3.4-5.0); ANION GAP 7 mmol/L (5-15); CALCIUM 8.9 mg/dL (8.5-10.1); CHLORIDE 108 mmol/L (98-107); CREATININE 0.72 mg/dL (0.55-1.02)
[2020-11-30 20:20] LABS: ALKALINE PHOSPHATASE 102 U/L (45-117); BILIRUBIN,TOTAL 0.4 mg/dL (0.2-1.0); TOTAL PROTEIN 7.3 g/dL (6.4-8.2)
[2020-11-30] MEDS ORDERED: ONDANSETRON ODT 4 MG ONE (20:24)
--- NOTE | 2020-11-30 20:42 | NUR ---
hx of total gastrectomy d/t failed gastric sleeve intractable vomiting x 2 months
[2020-11-30 21:22] LABS: MICROSCOPIC INDICATED
[2020-11-30] MEDS ORDERED: HALOPERIDOL 5 MG/ML ONE (21:27)
[2020-11-30] MEDS ORDERED: PROMETHAZINE 25 MG/ML, 1ML ONE (21:28)
[2020-11-30] MEDS ORDERED: METOCLOPRAMIDE 5 MG/ML, 2ML ONE (21:28)
[2020-11-30] MEDS ORDERED: MORPHINE SULFATE 4 MG/ML, 1ML ONE (21:28)
[2020-11-30] MEDS ORDERED: METOCLOPRAMIDE 5 MG/ML, 2ML IVPush ONE (21:30)
[2020-11-30] MEDS ORDERED: PROMETHAZINE 25 MG/ML, 1ML IM ONE (21:30)
[2020-11-30] MEDS ORDERED: SODIUM CHLORIDE 0.9% 1,000ML IVBOLUS ONE (21:30)
[2020-11-30] MEDS ORDERED: MORPHINE SULFATE 4 MG/ML, 1ML IVPush ONE (21:30)
[2020-11-30] MEDS ORDERED: HALOPERIDOL 5 MG/ML IM ONE (21:30)
--- NOTE | 2020-11-30 21:40 | NUR ---
medicated per emar for nausea/pain at 01/24 x2
--- NOTE | 2020-11-30 22:19 | NUR ---
1L NS COMPLETE PAIN/NAUSEA IMPROVED
[2020-11-30 22:34] VITALS: BP 104/56
--- NOTE | 2020-11-30 22:59 | NUR ---
ERP WOULD LIKE TO DEFER FURTHER NAUSEA MEDS PATIENT HAS TAKEN QUITE A FEW QT PROLONGING NAUSEA MEDS AT HOME AND WE HAVE DONE SO WELL
--- NOTE | 2020-11-30 23:01 | NUR ---
PATIENT AGREEABLE TO DISCHAGE WITH GI F/U
== END 2020-11-30 23:03 | disposition home or self-care (01) ==
LOC: ED 20:32
DX: R11.2 Nausea with vomiting, unspecified (principal); E86.0 Dehydration; R10.84 Generalized abdominal pain; R10.10 Upper abdominal pain, unspecified; G89.29 Other chronic pain; G43.909 Migraine, unspecified, not intractable, without status migrainosus
CPT/HCPCS: 36415; 80053; 81001; 83690; 84703; 85025; 96361; 96372; 96374; 96375; 99284; J1630; J2270; J2765; J7030

== ENCOUNTER 2021-01-13 17:19 | Emergency (ER) | payer MEDICARE ==
[~2021-01-13] VITALS: Ht 170.2 cm; Wt 70.1 kg
[~2021-01-13 17:19] MED LIST changes: +ONDA4TAB13 SL
--- NOTE | 2021-01-13 17:47 | NUR ---
INTINAL CONTACT: PT STATES THAT SHE HAS BEEN TO A GI DOCTOR AND DIAGNOSED WITH "CANDY CANE SYNDROME". PT STATES THAT SHE HAS BEEN VOMITING NON-STOP AND WONT BE ABLE TO STOP VOMITING UNTIL SHE HAS SURGERY. PT TO ROOM WITH STEADY GAIT. ATTACHED TO MONITORS. VSS.
--- NOTE | 2021-01-13 18:50 | NUR ---
PT TEARFUL BECAUSE SHE HASNT SEEN AN MD YET, PT COMPLAINING OF PAIN AND GI CRAMPS, SIGNIFICANT OTHER AT BEDSIDE
--- NOTE | 2021-01-13 18:50 | NUR ---
REPORT RECIEVED FROM BULMARO ALEXANDER
--- NOTE | 2021-01-13 18:59 | NUR ---
MD AT BEDSIDE TO DISCUSS POC
[2021-01-13] MEDS ORDERED: DIPHENHYDRAMINE 50 MG/ML, 1ML ONE (19:13)
[2021-01-13] MEDS ORDERED: METOCLOPRAMIDE 5 MG/ML, 2ML ONE (19:13)
[2021-01-13] MEDS ORDERED: MORPHINE SULFATE 4 MG/ML, 1ML ONE (19:14)
[2021-01-13 19:29] LABS: BASOPHILS % (AUTO) 1 % (0-1); EOSINOPHILS % (AUTO) 1 % (1-7); LYMPHOCYTES % (AUTO) 49 % (22-44); MEAN CORPUSCULAR HEMOGLOBIN 27.6 pg (27.0-34.8); MEAN CORPUSCULAR HGB CONC 34.3 g/dL (32.4-35.8); MEAN PLATELET VOLUME 7.7 fL (7.4-10.4); MONOCYTES % (AUTO) 9 % (2-9); NEUTROPHILS % (AUTO) 40 % (42-75); PLATELET COUNT 281 x10^3/uL (130-400); RED BLOOD COUNT 6.07 x10^6/uL (3.82-5.3); RED CELL DISTRIBUTION WIDTH 19.4 % (9.6-15.2)
[2021-01-13] MEDS ORDERED: DIPHENHYDRAMINE 50 MG/ML, 1ML IV ONE (19:30)
[2021-01-13] MEDS ORDERED: METOCLOPRAMIDE 5 MG/ML, 2ML IVPush ONE (19:30)
[2021-01-13] MEDS ORDERED: MORPHINE SULFATE 4 MG/ML, 1ML IVPush PRN (19:30)
[2021-01-13] MEDS ORDERED: SODIUM CHLORIDE 0.9% 1,000ML IVBOLUS ONE (19:30)
[2021-01-13] MEDS ORDERED: SODIUM CHLORIDE FLUSH 10ML SYR IVF ONE (19:30)
[2021-01-13 19:40] LABS: ALANINE AMINOTRANSFERASE 28 U/L (12-78); ALBUMIN 3.7 g/dL (3.4-5.0); ANION GAP 11 mmol/L (5-15); CALCIUM 9.8 mg/dL (8.5-10.1); CHLORIDE 103 mmol/L (98-107); CREATININE 0.63 mg/dL (0.55-1.02)
[2021-01-13 19:42] LABS: ALKALINE PHOSPHATASE 119 U/L (45-117); BILIRUBIN,TOTAL 0.7 mg/dL (0.2-1.0); TOTAL PROTEIN 7.2 g/dL (6.4-8.2)
[2021-01-13] MEDS ORDERED: HALOPERIDOL 5 MG/ML IM ONE (19:57)
[2021-01-13] MEDS ORDERED: HALOPERIDOL 5 MG/ML ONE (20:08)
[2021-01-13] MEDS: SODIUM CHLORIDE 0.9% 1,000 ML IV SCH ×2 (20:12→23:09)
--- NOTE | 2021-01-13 20:24 | NUR ---
PT LAYING IN BED, FAMILY AT BEDSIDE, PT A/OX4, PTS BLOOD PRESSURE A LITTLE LOW BUT PT STATED THAT SHE USUALLY RUNS A LITTLE ON THE LOW SIDE, FLUIDS RUNNING, ALL NEEDS IN REACH, NAD
--- NOTE | 2021-01-13 21:32 | NUR ---
MD AT BEDSIDE TO DISCUSS POC, PT A/OX4, ALL NEEDS IN REACH, CALL LIGHT IN REACH, NAD AT THIS TIME
[2021-01-13 22:07] LABS: MICROSCOPIC INDICATED
--- NOTE | 2021-01-13 22:45 | NUR ---
PT ASLEEP IN BED, FRIEND AT BEDSIDE, ALL NEEDS IN REACH, CALL LIGHT IN REACH, NAD AT THIS TIME
--- NOTE | 2021-01-13 23:13 | NUR ---
PT ASLEEP IN BED, FRIEND AT BEDSIDE, IV FLUIDS RUNNING (3RD BAG STARTED), ALL NEEDS IN REACH, CALL LIGHT IN REACH, NAD
--- NOTE | 2021-01-13 23:29 | NUR ---
PT ASLEEP IN BED, ALL NEEDS IN REACH, CALL LIGHT IN REACH, NAD
[2021-01-14 00:37] VITALS: BP 91/50
== END 2021-01-14 00:40 | disposition home or self-care (01) ==
LOC: ED 21:18
DX: R11.2 Nausea with vomiting, unspecified (principal); R10.13 Epigastric pain; G89.29 Other chronic pain; K91.1 Postgastric surgery syndromes; Z90.49 Acquired absence of other specified parts of digestive tract; Z90.710 Acquired absence of both cervix and uterus; Z90.89 Acquired absence of other organs
CPT/HCPCS: 36415; 74021; 80053; 81001; 83690; 85025; 87086; 96361; 96372; 96374; 96375; 99285; J1200; J1630; J2270; J2765; J7030

== ENCOUNTER 2021-04-05 11:11 | Emergency (ER) | payer MEDICARE ==
[~2021-04-05] VITALS: Ht 170.2 cm; Wt 64.3 kg
[~2021-04-05 11:11] MED LIST changes: +OXYC1TAB12 PO; -OXYC1TAB14 PO; +OXYC1TAB16 PO; -OXYC1TAB17 PO; -SCOP1PAT11 TD; +SCOP1PAT13 TD
[2021-04-05] MEDS ORDERED: SODIUM CHLORIDE FLUSH 10ML SYR IVF ONE (11:30)
[2021-04-05] MEDS ORDERED: SODIUM CHLORIDE 0.9% 1,000ML IVBOLUS ONE (11:30)
[2021-04-05 12:13] LABS: BASOPHILS % (AUTO) 0 % (0-1); EOSINOPHILS % (AUTO) 0 % (1-7); LYMPHOCYTES % (AUTO) 23 % (22-44); MEAN CORPUSCULAR HEMOGLOBIN 29.6 pg (27.0-34.8); MEAN CORPUSCULAR HGB CONC 33.5 g/dL (32.4-35.8); MEAN PLATELET VOLUME 7.6 fL (7.4-10.4); MONOCYTES % (AUTO) 4 % (2-9); NEUTROPHILS % (AUTO) 73 % (42-75); PLATELET COUNT 270 x10^3/uL (130-400); RED BLOOD COUNT 4.92 x10^6/uL (3.82-5.3); RED CELL DISTRIBUTION WIDTH 14.2 % (9.6-15.2)
[2021-04-05 12:27] LABS: ALBUMIN 3.5 g/dL (3.4-5.0); ANION GAP 8 mmol/L (5-15); CALCIUM 9.1 mg/dL (8.5-10.1); CHLORIDE 110 mmol/L (98-107)
[2021-04-05 12:31] LABS: ALANINE AMINOTRANSFERASE 17 U/L (12-78); ALKALINE PHOSPHATASE 135 U/L (45-117); BILIRUBIN,TOTAL 0.5 mg/dL (0.2-1.0); TOTAL PROTEIN 7.4 g/dL (6.4-8.2)
--- NOTE | 2021-04-05 13:35 | NUR ---
Pt dry-heaving. C/o RUQ and LUQ abd pain, with n/v x2 days. LBM yesterday, denies diarrhea. Pt reports "I've had a complete gastrectomy and I get into these episodes." States usually treated with "haldol, morphine, and something else I can't remember what it is." States was seen here 14 times between september and november 2020 for similar episode. Pt also states, "I feel like I'm dying," but states nothing feels different about this episode compared to similar ones "except I feel maybe a little more lethargic." Pt also reports hysterectomy with one ovary remaining
[2021-04-05 16:24] VITALS: BP 133/80
--- NOTE | 2021-04-05 19:08 | NUR ---
PT CALLED TO ROOM, NOT IN LOBBY
--- NOTE | 2021-04-05 19:21 | NUR ---
NOT IN LOBBY
--- NOTE | 2021-04-05 19:38 | NUR ---
PT CALLED TO ROOM FROM LOBBY - not in lobby
== END 2021-04-05 19:44 | disposition left against medical advice (07) ==
LOC: ED 11:57
DX: R11.2 Nausea with vomiting, unspecified (principal); R10.9 Unspecified abdominal pain
CPT/HCPCS: 36415; 74021; 80053; 83690; 84703; 85025; 99284